=== PATIENT | male | born 1965 | race Two or more races ===

== ENCOUNTER 2025-06-14 08:08 | Inpatient (IN) | payer MEDICAID, SELFPAY ==
[2025-06-14] VITALS (16 sets, daily range): BP systolic 148–213; BP diastolic 81–118; PULSE 68–114; RESP 14–20; TEMP 36.6–36.9; O2SAT 98–100; BMI 25.7
--- NOTE | 2025-06-14 08:31 | XR_ITS ---
EXAMINATION: PA chest single view TECHNIQUE: Upright PA chest single view INDICATIONS: Right lower flank pain chest pain today. FINDINGS: Normal heart size Lungs are clear. Intact osseous structures IMPRESSION: No active disease
--- NOTE | 2025-06-14 08:31 | EKG_ITS ---
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
--- NOTE | 2025-06-14 08:32 | XR_ITS ---
Examination: CT brain head without contrast. 2-D sagittal coronal reconstructions Date and time of exam: June 14, 2025, 0846 hours INDICATIONS: Syncopal episode this morning, patient fell with injury to the head, head pain CTDI: vol (mGy): 53.5 DLP: (mGycm): 1143 Technique: Multiple CT axial sections of the brain have been obtained, 5 mm slice thickness. Contrast has not been administered. 2-D sagittal, coronal reconstructions have been obtained Low dose protocols were performed. One or more of the following dose reduction techniques were used; automated exposure control, adjustment of the mA and/or KV according to patient size, use of iterative reconstruction technique. Findings: No significant ventricular enlargement. Intra-axial or extra-axial hemorrhage density is not seen. No mass effect or midline shift Basal cisterns are not remarkable. Fourth ventricle is midline. Cranial vault intact. Impression: Negative for acute hemorrhage, mass effect or midline shift
--- NOTE | 2025-06-14 08:32 | EDRME_ITS ---
Rapid Medical Screening Exam [facility] Arrival date/time: 06/14/25 08:08 60-year-old male with a history of hypertension presents to the emergency room with a chief complaint of a syncopal episode that occurred at 2 AM this morning where he felt very weak and fell to the floor while using the restroom. Patient also states has been having some right sided flank pain. I have greeted and performed a focused initial assessment of this patient. A comprehensive ED assessment and evaluation of the patient, analysis of all test results, and completion of the medical decision making process will be conducted by additional ED providers. Chief Complaint: Fall Time Seen by Provider: 06/14/25 08:18 Vital signs: Vital Signs Temperature 97.8 F 06/14/25 08:23 Pulse Rate 75 06/14/25 08:23 Respiratory Rate 18 06/14/25 08:23 Blood Pressure 170/112 H 06/14/25 08:23 Pulse Oximetry (%) 100 06/14/25 08:23 Oxygen Delivery Method Room Air 06/14/25 08:23 Vital signs reviewed by provider: Yes Exam: GCS of 15 alert and oriented x 3 pupils are PERRLA Right sided CVA tenderness with palpation Clinical Impression: Orthostatic hypotension/anemia/hypoglycemia
--- NOTE | 2025-06-14 08:32 | XR_ITS ---
Examination: CT abdomen and pelvis without contrast. Coronal 3-D reconstructions. Sagittal 2-D reconstructions. Date and time of exam: June 14, 2025, 0854 hours INDICATIONS: Patient fell today with injury to the abdomen, right-sided flank pain CTDI: vol (mGy): 6.72 DLP: (mGycm): 404 Technique: Axial images of the abdomen have been obtained, 3 mm slice thickness Intravenous contrast material has not been administered. Low dose protocols were performed. One or more of the following dose reduction techniques were used; automated exposure control, adjustment of the mA and/or KV according to patient size, use of iterative reconstruction technique. Findings: No visualized liver splenic or renal laceration Tiny 1 to 2 mm bilateral renal calculi No gallstones No pancreatic or adrenal mass Aorta normal size and intact, no free blood in the abdomen Normal appendix No bowel obstruction Urinary bladder intact No significant prostatomegaly Prominent osteopenia IMPRESSION: Tiny 1 to 2 mm bilateral nonobstructing renal calculi Normal appendix No bowel obstruction diverticulitis or free air
[2025-06-14 09:33] LABS: Basophils # (Auto) 0.0 Thou/mm3 (0.0-0.2); Basophils % (Auto) 1 % (0-2.5); Eosinophils # (Auto) 0.1 Thou/mm3 (0.0-0.5); Eosinophils % (Auto) 1 % (0-10); Hematocrit 42.3 % (41.0-53.0); Hemoglobin 14.5 g/dL (13.5-16.0); Immature Granulocytes Auto 0.03 Thou/mm3 (0.00-0.00); Lymphocytes # (Auto) 1.7 Thou/mm3 (1.0-4.8); Lymphocytes % (Auto) 27 % (10-50); Mean Corpuscular HGB Conc 34.3 g/dl (31.0-37.0); Mean Corpuscular Hemoglobin 29.0 pg (25.0-35.0); Mean Corpuscular Volume 85 fL (80-100); Monocytes # (Auto) 0.6 Thou/mm3 (0.0-0.8); Monocytes % (Auto) 9 % (0-12); Neutrophils # (Auto) 4.0 Thou/mm3 (1.8-7.7); Neutrophils % (Auto) 63 % (37-80); Nucleated Red Blood Cell # 0.00 Thou/mm3 (0.00-0.00); Nucleated Red Blood Cell % 0 /100 WBC (0); Platelet Count 211 Thou/mm3 (140-440); RDW Standard Deviation 37.9 fL (35.1-43.9); Red Blood Count 5.00 Miln/mm3 (4.50-5.90); White Blood Count 6.4 Thou/mm3 (3.8-10.6)
[2025-06-14 09:48] LABS: INR 1.0 (0.9-1.3); Partial Thromboplastin Time 26.3 Seconds (22.0-36.0); Prothrombin Time 10.6 Seconds (9.0-12.2)
[2025-06-14 09:58] LABS: B-Type Natriuretic Peptide 32 pg/mL (0-100)
[2025-06-14 10:02] LABS: Alanine Aminotransferase 24 U/L (10-49); Albumin, Serum 4.7 gm/dL (3.4-4.8); Albumin/Globulin Ratio 2.0 (1.2-2.2); Alkaline Phosphatase 159 U/L (46-116); Anion Gap 8 (7-16); Aspartate Amino Transferase 25 U/L (0-34); BUN/Creatinine Ratio 13 Ratio (12-20); Bilirubin,Total 0.6 mg/dL (0.3-1.2); Blood Urea Nitrogen 12 mg/dL (9-23); Calcium 9.5 mg/dL (8.3-10.6); Calcium (Corrected) 9.5 mg/dL (8.5-10.1); Carbon Dioxide 30.5 mMol/L (20.0-31.0); Chloride 99 mMol/L (98-107); Creatinine (Component) 0.9 mg/dL (0.6-1.3); Estimated Creatinine Clearance 75.9 mL/min (>60); Free T4 (Free Thyroxine) 1.31 ng/dL (0.89-1.76); Globulin 2.3 gm/dL (2.3-3.5); Glucose 301 mg/dL (74-106); Lipase 35 U/L (12-53); Magnesium 1.8 mg/dL (1.6-2.6); Osmolality,Calculated 284 (275-295); Potassium 3.6 mMol/L (3.4-5.1); Sodium 137 mMol/L (136-145); Thyroid Stimulating Hormone 1.64 uIU/mL (0.55-4.78); Total Protein 7.0 gm/dL (5.7-8.2); Troponin I < 0.020 ng/mL (0.0-0.045); eGFR > 60 See Note
--- NOTE | 2025-06-14 10:10 | PC.NURSE ---
pt to ER from home stating he fell from his bed around 0230 this morning getting up to go to the restroom and is now stating he has right kidney pain. Denies pain when urinating. Pt GCS of 15. Denies nausea, vomiting, and no LOC.
--- NOTE | 2025-06-14 10:39 | PC.NURSE ---
provider at bedside
[2025-06-14] MEDS: KETOROLAC INJ 30 MG/ML VIAL IM (10:43)
--- NOTE | 2025-06-14 10:44 | EDNOTE_ITS ---
<Statement entered by Amber Driver MD - 06/16/25 17:44> I, Amber Driver MD, have reviewed the history, exam, and assessment of the patient. I have evaluated the patient independently and agree with the plan of care documented by [ ]. All diagnostic studies were reviewed and discussed. I confirm the diagnosis as documented by the Resident. I was present during the Medical Decision Making for this patient. The patient's plan of care was created between myself and the Resident and consistent with our discussion of the patient's case. ED General RME/HPI General Chief complaint: Fall Stated complaint: FALL, PAIN IN R) FLANK, WEAKNESS Time Seen by Provider: 06/14/25 08:18 Arrival date/time: 06/14/25 08:08 RME / HPI RME / HPI narrative: 06/14/25 08:08 60-year-old male with a history of hypertension presents to the emergency room with a chief complaint of a syncopal episode that occurred at 2 AM this morning where he felt very weak and fell to the floor while using the restroom. Patient also states has been having some right sided flank pain. I have greeted and performed a focused initial assessment of this patient. A comprehensive ED assessment and evaluation of the patient, analysis of all test results, and completion of the medical decision making process will be conducted by additional ED providers. Exam: GCS of 15 alert and oriented x 3 pupils are PERRLA Right sided CVA tenderness with palpation Impression: Orthostatic hypotension/anemia/hypoglycemia Related Data Allergies Allergy/AdvReac Type Severity Reaction Status Date / Time No Known Allergies Allergy Verified 06/14/25 08:17 ED Exam Narrative Physical exam: Physical Exam: GENERAL: [place], answering questions appropriately in Bahamian, appears stated ageke HEENT: NC/AT. Moist mucosa. PERRLA/EOMI. CARDIO: Heart RRR, no obvious murmurs, no JVD. PULM: No coughing or visible SOB. Lungs CTA B/L. GI: Abdomen soft, NT/ND, +BS. SKIN/MSK/EXT: No wounds/discoloration/rashes/edema/amputations noted. +Pedal pulses present B/L. NEURO: Oriented x3, Moves extremities x4, no focal neurologic deficits noted, Positive pronator drift on Left, rapid alternating movements intact, Gait appears waddling/scissoring in nature. 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 Care 06/14/25 14:30 Active Continuous Pulse Oximetry NOW Care 06/14/25 14:30 Completed Decision to Admit X1 Care 06/14/25 15:21 Active EKG (ED ONLY) *Do not use* NOW Care 06/14/25 08:31 Completed In and Out Catheter NEEDED Care 06/14/25 14:30 Active Insert IV NOW Care 06/14/25 14:30 Active NIH Stroke Scale now Care 06/14/25 14:30 Active NPO NOW Care 06/14/25 14:30 Active Nurse Swallow Screen x1 Care 06/14/25 14:30 Active Consult to Neurology / Tele-Neurology Routine Cons 06/14/25 14:[address] abdomen pelvis wo con Stat Exams 06/14/25 08:[address] angio stroke protocol Stat Exams 06/14/25 14:[address] head/brain wo con Stat Exams 06/14/25 08:[address] stroke protocol Stat Exams 06/14/25 14:29 Completed EKG (ED Only) Stat Exams 06/14/25 08:31 Draft XR chest 1V portable Stat Exams 06/14/25 08:31 Completed Alcohol, Blood Medical Stat Lab 06/14/25 09:24 Completed B-Type Natriuretic Peptide Stat Lab 06/14/25 09:24 Completed CBC Stat Lab 06/14/25 09:24 Completed Comprehensive Metabolic Panel Stat Lab 06/14/25 09:24 Completed Drug Screen,Urine Stat Lab 06/14/25 11:25 Completed Free T4 (Free Thyroxine) Stat Lab 06/14/25 09:24 Completed Lipase Stat Lab 06/14/25 09:24 Completed Magnesium Stat Lab 06/14/25 09:24 Completed Partial Thromboplastin Time Stat Lab 06/14/25 09:24 Completed Prothrombin Time with INR Stat Lab 06/14/25 09:24 Completed TSH [Thyroid Stimulating Hormone] Stat Lab 06/14/25 09:24 Completed Troponin I Stat Lab 06/14/25 09:24 Completed Urinalysis, C/S if Indicated Stat Lab 06/14/25 11:25 Completed Clopidogrel [Plavix] Med 06/14/25 15:09 Discontinued 300 mg PO X1 ONE Ketorolac Inj [Toradol Inj] Med 06/14/25 10:30 Discontinued 30 mg IM X1 ONE NIFEdipine [Procardia Xl] Med 06/14/25 12:55 Discontinued 30 mg PO X1 ONE hydrALAZINE HCL [Apresoline] Med 06/14/25 14:03 Discontinued 10 mg PO X1 ONE Oxygen Delivery NOW RT 06/14/25 14:30 Active Vital Signs Vital signs: Vital Signs Temperature 97.8 F 06/14/25 08:23 Pulse Rate 75 06/14/25 08:23 Respiratory Rate 18 06/14/25 08:23 Blood Pressure 170/112 H 06/14/25 08:23 Pulse Oximetry (%) 100 06/14/25 08:23 Oxygen Delivery Method Room Air 06/14/25 08:23 Discharge Plan Plan Patient Disposition: HOME (Self Care) Patient condition on transfer: Stable Prescriptions/Referrals Referrals: No Primary/Family,Physician [Primary Care Provider] - In 1 week Problem List Clinical Impression: Renal colic Patient/Caregiver Discharge Instructions Education Materials: ED Kidney Stone w/ Colic Additional Instructions: Por favor, consulte con monteiro m?dico de cabecera en los pr?ximos 3 a 5 d?as. Pida a monteiro m?dico de cabecera que le controle la presi?n arterial y que le derive a un neur?logo debido a la marcha anormal y a la desviaci?n pronadora positiva en el lado peng. P?ronal a monterio m?dico que le realice un examen f?sico y robert evaluaci?n anual, ya que parth niveles de glucosa son bastante altos; podr?a tener diabetes tipo 2. Si el dolor empeora o si presenta fiebre/escalofr?os, dolor en el pecho, dificultad para respirar o p?rdida del conocimiento, regrese a la stephon de emergencias de inmediato. Print Language: Bahamian Stand Alone Forms: Criss Award Info., Patient Portal Info Letter MDM Narrative MDM hospital course (for use when minimal MDM required): HPI: 60-year-old male with past medical history of type 2 diabetes presenting to the ER on 06/14 after he apparently had an episode where he was walking to his bath room around 2 AM when he felt weak and fell. Patient denies losing consciousness and denies having his head anywhere. He does state that he has been having ongoing right sided pain around his kidney. Of note, patient states that in the past he has had similar symptoms and was treated with antibiotics due to kidney infection. Patient otherwise denies having any chest pain, shortness of breath, dizziness, palpitations, nausea, vomiting, diarrhea, melena, hematochezia or hematemesis. On examination, please refer to the physical exam of; patient presented mildly hypertensive 170/112, heart rate of 75, respiratory rate 18, afebrile satting 100 on room air. Pertinent findings included unremarkable CBC without leukocytosis or anemia. CMP also largely unremarkable other than glucose elevated at 301 and alk phos of 159 otherwise troponin and BNP negative. Urinalysis shows glucosuria but otherwise unremarkable for any signs of trauma, hematuria or infection. Chest x-ray showed no active disease, CT abdomen pelvis showed 2 tiny 1 to 2 mm bilateral nonobstructing renal calculi otherwise unremarkable, head CT was negative and EKG showed sinus rhythm. #New neurological findings L sided pronator drift; abnormal gait with waddling/scisscoring noted Patient states these symptoms started recently, denies having difficulty walking prior to initial presentation ASCVD risk of 24.9% (coronary or stroke or non-fatal [place] or stroke) in next 10 years Gave patient bolus of Plavix 300mg x 1 Plan: Stroke alert initiated; CT and CTA stroke protocol negative Tele neurology recommendations to admit patient and obtain MRI #Presyncope #Hypertensive urgency Patient's EKG is unremarkable Head CT also unremarkable Patient denies any chest pain, shortness of breath, palpitations or any other concerning cardiac symptoms at this time. Also gave patient nifedipine 30 mg for blood pressure control and hydralazine 10 mg x 1 #Renal colic Patient has history of nephrolithiasis in the past As noted CT abdomen pelvis shows nonobstructing renal calculi Patient given Toradol 30 mg IM with improvement in pain Patient seen and assessed with attending Dr. Villa Guevara, DO PGY-2 Internal Medicine - GME Medication Administration(s) Medication Administration History Discontinued Medications Clopidogrel Bisulfate (Clopidogrel Bisulfate 75 Mg Tablet) 300 mg PO X1 ONE Stop: 06/14/25 15:10 Last Admin: 06/14/25 15:17 Dose: 300 mg Documented By: DO Hydralazine HCl (Hydralazine Hcl 10 Mg Tablet) 10 mg PO X1 ONE Stop: 06/14/25 14:04 Last Admin: 06/14/25 15:17 Dose: 10 mg Documented By: DO Ketorolac Tromethamine (Ketorolac Inj 30 Mg/Ml Vial) 30 mg IM X1 ONE Stop: 06/14/25 10:31 Last Admin: 06/14/25 10:43 Dose: 30 mg Documented By: DO Nifedipine (Nifedipine Xl 30 Mg Tabcr) 30 mg PO X1 ONE Stop: 06/14/25 12:56 Last Admin: 06/14/25 13:31 Dose: 30 mg Documented By: DO
[2025-06-14 11:35] LABS: Collection Type, Urine Clean Catch; RBC,Urine 0 /hpf (0-3); Squamous Epithelial Cell,Urine 0 /hpf (0-5); WBC,Urine 0 /hpf (0-5)
[2025-06-14 12:07] LABS: Bilirubin,Urine Negative (Negative); Blood,Urine Negative (Negative); Clarity,Urine Clear (Clear/Hazy); Color,Urine Colorless (Lt Yel-Yel); Culture Indicated,Urine Not Indicated; Glucose, Urine 4+ (Negative); Ketones,Urine Negative (Negative); Leukocyte Esterase,Urine Negative (Negative); Nitrite,Urine Negative (Negative); PH,Urine 7.0 (5.0-7.0); Protein,Urine Trace (Neg - Trace); Specific Gravity,Urine 1.010 (1.001-1.035); Urobilinogen,Urine Negative mg/dL (0.0-1.0)
--- NOTE | 2025-06-14 12:53 | PC.NURSE ---
Dr. Guevara made aware of pt's high BP. Pt states he doesn't take any blood pressure medications. Per provider will give pt a dose of medication for high BP prior to discharge
[2025-06-14] MEDS: NIFEdipine XL 30 MG TABCR PO (13:31)
--- NOTE | 2025-06-14 14:21 | PC.NURSE ---
tele neuro cart activated conf number [id number]
--- NOTE | 2025-06-14 14:29 | XR_ITS ---
Examination: CTA carotids with intravenous contrast CTA brain, head with intravenous contrast. 2-D sagittal, coronal reconstructions. 3-D reconstructions. Exam date and time: June 12, 2025, 1437 hours INDICATIONS: Stroke alert, onset unsteady gait today CTDI: vol (mGy) 25.4 DLP: (mGycm) 491 Technique: Multiple CTA axial brain, head carotid images post intravenous contrast injection 75 cc, [id number]. 2-D sagittal, coronal reconstructions. 3-D reconstructions, 3-D post processing including vascular maximum intensity projection images. Low dose protocols were performed. One or more of the following dose reduction techniques were used; automated exposure control, adjustment of the mA and/or KV according to patient size, use of iterative reconstruction technique. Findings: No significant common carotid carotid bifurcation or internal carotid artery stenoses Codominant vertebral arteries with no critical stenoses in the neck No cerebral large vessel arterial occlusions or thrombus IMPRESSION: No significant neck arterial stenoses No cerebral large vessel arterial occlusions or thrombus
--- NOTE | 2025-06-14 14:29 | XR_ITS ---
Examination: CT brain head without contrast. 2-D sagittal coronal reconstructions Date and time of exam: June 14, 2025, 1435 hours, comparison June 14, 2025 0853 hours INDICATIONS: Stroke alert, unsteady gait today CTDI: vol (mGy): 56.6 DLP: (mGycm): 1169 Technique: Multiple CT axial sections of the brain have been obtained, 5 mm slice thickness. Contrast has not been administered. 2-D sagittal, coronal reconstructions have been obtained Low dose protocols were performed. One or more of the following dose reduction techniques were used; automated exposure control, adjustment of the mA and/or KV according to patient size, use of iterative reconstruction technique. Findings: No significant ventricular enlargement. Intra-axial or extra-axial hemorrhage density is not seen. No mass effect or midline shift Basal cisterns are not remarkable. Fourth ventricle is midline. Cranial vault intact. Impression: Negative for acute hemorrhage, mass effect or midline shift
[2025-06-14 14:30] LABS: Amphetamine/Methamp Scrn,U Negative (Negative); Barbiturate Screen,Urine Negative (Negative); Benzodiazepines Screen,Urine Negative (Negative); Benzoylecgonine Screen, Ur Negative (Negative); Fentanyl Screen,Urine Negative (Negative); Opiate Screen,Urine Negative (Negative); THC Screen,Urine Negative (Negative)
--- NOTE | 2025-06-14 14:30 | PC.NURSE ---
Stroke alert called on pt at 1420. Assisted DEE Onofre as her preceptor was on lunch. Took pt to CT while on groundwater monitoring technician. Tele neurologist evaluated pt, viewed CT and CTA and stated pt is NOT a candidate for TNK at this time. Pt was returned to ER room 5.
[2025-06-14 14:52] LABS: Alcohol, Blood Medical < 3.0 mg/dL (0-10.0)
--- NOTE | 2025-06-14 15:03 | PD.TNEURO ---
Tele Neuro Consultation Consultation Date 06/14/25 Most Recent Vital Signs Last Vital Signs Temp 98.4 F 06/14/25 12:30 Pulse 74 06/14/25 13:31 Resp 16 06/14/25 12:28 BP 184/86 H 06/14/25 13:31 Pulse Ox 99 06/14/25 12:28 O2 Del Method Room Air 06/14/25 08:23 Laboratory-Coagulation Panel PT 10.6 Seconds (9.0-12.2) 06/14/25 09:24 INR 1.0 (0.9-1.3) 06/14/25 09:24 APTT 26.3 Seconds (22.0-36.0) 06/14/25 09:24 Consultation Narrative [facility] Tele[facility]urology Consult Services Patient Name:???greensallyhernandezjanak Date of :???1965 Identification Number:??? Date of Service:???06/14/2025 14:21:29 Diagnosis:?I63.89 - Cerebrovascular accident (CVA) due to other mechanism ([facility]) Impression: ?60 year old male with episode of syncope today and some weakness in the left upper extremity since yesterday. NIHSS 1. CT head negative for hemorrhage. Not a candidate for thrombolysis given LKW > 4.5 hours. CTA performed however imaging not in PACS and will need to be followed up. Given left sided weakness I do suspect the patient had a stroke. I would recommend MRI brain and an evaluation for modifiable stroke risk factors. Given the likely stroke I would recommend initiating DAPT at this time. Our recommendations are outlined below. Recommendations: ? Stroke/Telemetry Floor ? Neuro Checks (Q4) ? Bedside Swallow Eval ? DVT Prophylaxis ? IV Fluids, Normal Saline ? Head of Bed 30 Degrees ? Euglycemia and Avoid Hyperthermia (PRN Acetaminophen) ? Bolus with Clopidogrel 300 mg bolus x1 and initiate dual antiplatelet therapy with Aspirin 81 mg daily and Clopidogrel 75 mg daily ? Antihypertensives PRN if Blood pressure is greater than 220/120 or there is a concern for End organ damage/contraindications for permissive HTN. If blood pressure is greater than 220/120 give labetalol PO or IV or Vasotec IV with a goal of 15% reduction in BP during the first 24 hours. ?MRI Brain Sign Out: ? Discussed with Emergency Department Provider Advanced Imaging:Advanced imaging has been ordered. Results pending. Metrics: Last Known Well: Unknown Arrival Time: 06/14/2025 08:12:00 Activation Time: 06/14/2025 14:21:29 Initial Response Time: 06/14/2025 14:24:48Symptoms: left sided weakness. Initial patient interaction: 06/14/2025 14:33:04 NIHSS Assessment Completed: 06/14/2025 14:36:55Patient is not a candidate for Thrombolytic. Thrombolytic Medical Decision: 06/14/2025 14:36:57Patient was not deemed candidate for Thrombolytic because of following reasons: LKW outside 4.[address] Head: I personally reviewed all the CT images that were available to me and it showed: no evidence of hemorrhage. Primary Provider Notified of Diagnostic Impression and Management Plan on: 06/14/2025 15:02:27 History of Present Illness:Patient is a 60 year old Male. Patient was brought by private transportation with symptoms of left sided weakness. The patient presented following a fall. He was normal upon arrival but has been acting different and diffusely weak. When the patient woke up at 2am he fell out of bed. He notes that when he stands up he will get very dizzy. He has noted that the left arm and hand is having difficulty holding onto things. The left sided weakness began sometime yesterday. He notes that the right side of his body is numb because of diabetic neuropathy which he has had for 8 years. ? Past Medical History: ?Hypertension ?Diabetes Mellitus Medications: No Anticoagulant use? No Antiplatelet use Reviewed EMR for current medications Allergies:? NKDA Social History: Drug Use: No Family History: There is no family history of premature cerebrovascular disease pertinent to this consultation ROS : 14 Points Review of Systems was performed and was negative except mentioned in HPI. Past Surgical History: There Is No Surgical History Contributory To Today?s Visit ? Examination: BP(207/106),?Pulse(90),?Blood Glucose(265) 1A: Level of Consciousness - Alert; keenly responsive?+ 0 1B: Ask Month and Age - Both Questions Right?+ 0 1C: Blink Eyes & Squeeze Hands - Performs Both Tasks?+ 0 2: Test Horizontal Extraocular Movements - Normal?+ 0 3: Test Visual Suarez - No Visual Loss?+ 0 4: Test Facial Palsy (Use Grimace if Obtunded) - Normal symmetry?+ 0 5A: Test Left Arm Motor Drift - Drift, but doesn't hit bed?+ 1 5B: Test Right Arm Motor Drift - No Drift for 10 Seconds?+ 0 6A: Test Left Leg Motor Drift - No Drift for 5 Seconds?+ 0 6B: Test Right Leg Motor Drift - No Drift for 5 Seconds?+ 0 7: Test Limb Ataxia (FNF/Heel-Ward) - No Ataxia?+ 0 8: Test Sensation - Normal; No sensory loss?+ 0 9: Test Language/Aphasia - Normal; No aphasia?+ 0 10: Test Dysarthria - Normal?+ 0 11: Test Extinction/Inattention - No abnormality?+ 0 NIHSS Score:?1 Pre-Morbid Modified Apollo Scale: 0 Points = No symptoms at all Spoke with :?Dr. Guevara, ED physician This consult was conducted in real time using interactive audio and video technology. Patient was informed of the technology being used for this visit and agreed to proceed. Patient located in hospital and provider located at home/office setting. Patient is being evaluated for possible acute neurologic impairment and high probability of imminent or life-threatening deterioration. I spent total of 50 minutes providing care to this patient, including time for face to face visit via telemedicine, review of medical records, imaging studies and discussion of findings with providers, the patient and/or family. Dr Asia Sutherland [facility] For Inpatient follow-up with [facility] physician please call [facility] at . As we are not an outpatient service for any post hospital discharge needs please contact the hospital for assistance. If you have any questions for the [facility] physicians or need to reconsult for clinical or diagnostic changes please contact us via [facility] at . Non-radiologist review of imaging performed to assist with emergent clinical decision-making. Remote physician workstations do not possess the same resolution, calibration, or diagnostic capabilities as hospital-based radiology reading stations, and formal radiologist read is necessary. Signature :?Asia Sutherland ?
[2025-06-14] MEDS: CLOPIDOGREL BISULFATE 75 MG TABLET 300 MG PO (15:17)
--- NOTE | 2025-06-14 16:11 | ESHP_ITS ---
<Statement entered by Lj Fermin MD - 06/14/25 21:17> Note reviewed and agree with care plan as documented. Please refer to the note below for further details. Plan discussed with attending physician Dr. Obed Fermin MD PGY-2 Internal Medicine Documentation for date of: 06/14/25 HPI History of Present Illness History of present illness: Mr. Anil Zelaya is a 60 year old male with a past medical history significant for type 2 diabetes mellitus, hyperlipidemia, neuropathy coming in s/p fall. Patient is a poor historian. Per patient, in the middle of the night earlier today patient was going to the restroom but suffered a fall. He said the fall was approximately at 0200. He reports that he felt like his left leg 'gave in' but initially thought nothing of it. Then later in the morning he started getting a headache to which he went to the emergency department. Initial visit in ED AM at [facility] patient denoted ongoing headache as well as flank pain. He has not had hematuria. He also stated that he had left-sided weakness, and a stroke workup was initiated. EKG NSR on admission CTAP reveals tiny 1-2mm bilateral nonobstructing renal calculi, without bowel obstruction diverticulitis nor free air. Patient admitted for stroke workup: Neurological examination bedside is significant for drifting left foot on ambulation despite the ability to ambulate somewhat independently. Additionally Mr. Zelaya has decreased calibration tester strength on L side upper extremity - 4+ on RUE squeeze, 3+ on LUE squeeze. No visual field defects are noted on exams. Reflexes are in tact WNL. Othwerwise strength on flexion, extension +4 throughout(save for LUE). Additionally, mild left-sided facial droop is notable on examination without word-slurring during conversation. CT head negative for hemorrhage. CTA Head/Neck demonstrated no significant stenosis, no cerebral large vessel arterial occlusions or thrombi. Neurology consulted: not a candidate for thrombolysis given >4.5 hours from event. 300 loading dose of Plavix given, ASA 81 and Plavix 75 q24h ordered for tomorrow Permissive HTN protocol initiated 220/120 as well w/ labetalol PO/IV or Vasotec IV for PRN HTN tx. Review of Systems Review of Systems Systems Reviewed: All systems reviewed, normal except as documented Exam Vital Signs Temp Pulse Resp BP Pulse Ox O2 Del Method 97.9 F 79 14 213/118 H 99 Room Air 06/14/25 15:28 06/14/25 15:33 06/14/25 15:33 06/14/25 15:33 06/14/25 15:33 06/14/25 15:33 Narrative Exam General: alert and oriented to self/place/year, no acute distress, able to speak full sentences HEENT: NC/AT, mucous membranes moist, bilateral sclera anicteric Neuro: significant for Pronator drift of LUE, Ambulation difficulty w/ LLE despite normal strength/reflex test. L lower face droop on confrontation. Other Neuro exam WNL Cardiovascular: regular rate and rhythm, S1/S2 present, no murmurs appreciated Pulmonary: clear to auscultation bilaterally, no rales/rhonchi/wheezes Abdominal: soft, nontender, present bowel sounds Musculoskeletal: no peripheral edema Skin: Warm, well-perfused Results: Labs 06/17/25 04:43 06/17/25 04:43 Labs: Short CBC 06/14/25 Range/Units 09:24 WBC 6.4 (3.8-10.6) Thou/mm3 Hgb 14.5 (13.5-16.0) g/dL Hct 42.3 (41.0-53.0) % Plt Count 211 (140-440) Thou/mm3 [facility] 06/14/25 09:24 Sodium 137 Potassium 3.6 Chloride 99 Carbon Dioxide 30.5 BUN 12 Creatinine 0.9 Glucose 301 H Calcium 9.5 Cardiac Enzymes 06/14/25 Range/Units 09:24 Troponin I < 0.020 (0.0-0.045) ng/mL Liver Function 06/14/25 Range/Units 09:24 Total Bilirubin 0.6 (0.3-1.2) mg/dL AST 25 (0-34) U/L ALT 24 (10-49) U/L Alkaline Phosphatase 159 H (46-116) U/L Albumin 4.7 (3.4-4.8) gm/dL Urine 06/14/25 Range/Units 11:25 Urine Color Colorless A (Lt Yel-Yel) Urine Clarity Clear (Clear/Hazy) Urine pH 7.0 (5.0-7.0) Ur Specific [place] 1.010 (1.001-1.035) Urine Protein Trace (Neg - Trace) Urine Glucose (UA) 4+ A (Negative) Quality Measures Quality Measures none Medications Home Medications and Allergies Home Medications ?Medication ?Instructions ?Recorded ?Confirmed ?Type clonazepam 2 mg tablet (Klonopin) 2 mg PO QDAY 5 06/14/25 History metformin 850 mg PO DAILY diabetes 06/14/25 History naproxen sodium 220 mg tablet 220 mg PO BID PRN pain 1 08/15/24 06/14/25 History (Flanax (naproxen)) pravastatin 10 mg tablet 10 mg PO QDAY 06/14/2506/14 History pregabalin 75 mg capsule (Lyrica) 75 mg PO QDAY 06/14/25 History Allergies Allergy/AdvReac Type Severity Reaction Status Date / Time No Known Allergies Allergy Verified 06/14/25 08:17 Visit Medications Discontinued Medications Clopidogrel Bisulfate (Clopidogrel Bisulfate 75 Mg Tablet) 300 mg PO X1 ONE Stop: 06/14/25 15:10 Last Admin: 06/14/25 15:17 Dose: 300 mg Hydralazine HCl (Hydralazine Hcl 10 Mg Tablet) 10 mg PO X1 ONE Stop: 06/14/25 14:04 Last Admin: 06/14/25 15:17 Dose: 10 mg Ketorolac Tromethamine (Ketorolac Inj 30 Mg/Ml Vial) 30 mg IM X1 ONE Stop: 06/14/25 10:31 Last Admin: 06/14/25 10:43 Dose: 30 mg Nifedipine (Nifedipine Xl 30 Mg Tabcr) 30 mg PO X1 ONE Stop: 06/14/25 12:56 Last Admin: 06/14/25 13:31 Dose: 30 mg Assessment & Plan Plan 60 year old male with a past medical history significant for type 2 diabetes mellitus, hyperlipidemia, neuropathy who is being admitted for stroke work up. #CVA work-up #Facial Droop Fall @ 0200 06/13 Neurological exam noted for L sided face droop, LLE weakness and LUE pronation No dysarthria/dysphagia 06/14 AM consulted Neurology Head CT negative for hemorrhage 06/14 EKG sinus rhythm Differential = Stroke >>> TIA >> other Neuro Recommendations: ? Stroke/Telemetry Floor ? Neuro Checks (Q4) ? Bedside Swallow Eval ? DVT Prophylaxis ? IV Fluids, Normal Saline ? Head of Bed 30 Degrees ? Euglycemia and Avoid Hyperthermia (PRN Acetaminophen) ? Bolus with Clopidogrel 300 mg bolus x1 and initiate dual antiplatelet therapy with Aspirin 81 mg daily and Clopidogrel 75 mg daily ? Antihypertensives PRN if Blood pressure is greater than 220/120 or there is a concern for End organ damage/contraindications for permissive HTN. If blood pressure is greater than 220/120 give labetalol PO or IV or Vasotec IV with a goal of 15% reduction in BP during the first 24 hours. -Pending MRI -Gave 300mg plavix today, ASA 81 and Plavix 75 q24h tomorrow 06/15 -Admit to med telemetry for continued stroke workup -Follow up swallow eval, Speech Therapy -Permissive HTN with PRN labetalol -Daily CBC CMP Mg Phos -Pending ECHO w/ bubble study -Follow-up A1c, lipid panel #Type 2 diabetes mellitus Takes metformin 850 mg daily at home -ISS -Hypoglycemic protocol in place -Follow up daily labs -Follow-up A1c #HLD at home on Pravastatin 10mg q24h -Started on Atorvastatin 40mg PO HS #Neuropathy -Resume home pregabalin 75mg q24h Hospital management: Disposition: admit to med tele for stroke workup Fluids: LR 75ml/hr Diet: NPO Lines: PIV DVT prophylaxis: Enoxaparin 40mg q24h CODE STATUS: full code Attending seen and discussed with attending physician Dr. Miguel Clay and senior resident Dr. Lj Herrera MD PGY-1 Attending Provider Attestation/Addendum I have examined the patient, reviewed labs and imaging findings, discussed the case with the resident(s), and reviewed entered orders. I agree with the plan of care as outlined in this note, with these additional summaries/recommendations: After examination of the patient and review of the clinical data, I feel that this patient needs admission to the hospital for further treatment and evaluation. Dr. Obed MD
--- NOTE | 2025-06-14 16:40 | PC.NURSE ---
Neuro at bedside
--- NOTE | 2025-06-14 17:04 | PC.NURSE ---
Neuro at bedside at this time. Will give pt Hydralazine once neuro is done
[2025-06-14] MEDS: hydrALAZINE INJ 20 MG/ML VIAL 10 MG IVP (17:10)
--- NOTE | 2025-06-14 17:22 | ECHO_ITS ---
Patient Info Name: Anil Grewal Age: 60 years : 1965 Gender: Male Ht: 165 cm Wt: 70 kg BSA: 1.81 m2 BP: 187 / 97 mmHg HR: 78 bpm Exam Date: 06/14/2025 5:38 PM Admit Date: 06/14/2025 Site: [facility] Room Number: [facility]5 Patient Status: I Exam Type: CA echo doppler complete [employer] Guide: Cassia Roth Ordering Physician: Lj Fermin Study Info Indications Stroke rule out, with bubble study - Primary Location: [place] Left Ventricular Outflow Tract Name Value Normal LVOT 2D LVOT Diameter 1.9 cm LVOT Doppler LVOT Peak Velocity 137 cm/s LVOT Mean Gradient 4 mmHg LVOT VTI 28 cm LVOT VTI/AV VTI Ratio 1.0 LVOT Stroke Volume 79 ml Pulmonic Valve Name Value Normal PV Doppler PV Peak Velocity 141 cm/s Mitral Valve Name Value Normal MV Doppler MV Decel [place] 458 cm/s2 MV PHT 53 ms MV Area (PHT) 4.1 cm2 4.0-5.0 MV Diastolic Function MV E Peak Velocity 84 cm/s MV A Peak Velocity 104 cm/s MV E/A 0.8 MV Annular TDI MV Septal e' Velocity 7.4 cm/s MV E/e' (Septal) 11.3 MV Lateral e' Velocity 9.6 cm/s MV E/e' (Lateral) 8.8 MV e' Average 8.49 cm/s MV E/e' (Average) 10.1 Tricuspid Valve Name Value Normal TV Regurgitation Doppler TR Peak Velocity 195 cm/s Estimated PAP/RSVP RA Pressure 3 mmHg <=5 PA Systolic Pressure 18 mmHg <36 RV Systolic Pressure 18 mmHg <36 Aortic Valve Name Value Normal AV 2D/MM AV Cusp Sep (MM) 1.0 cm AV Doppler AV Peak Velocity 189 cm/s AV Mean Gradient 7 mmHg AV VTI 28 cm AV Area (Cont Eq VTI) 2.8 cm2 >=3.0 AV Area (Cont Eq Adrian) 2.1 cm2 AV DI (Adrian) 0.72 AV Regurgitation 2D LVOT Area 2.8 cm2 Ventricles Name Value Normal LV Dimensions 2D/MM IVS Diastolic Thickness (2D) 1.0 cm 0.6-1.0 LVID Diastole (2D) 3.8 cm 4.2-5.8 LVIW Diastolic Thickness (2D) 1.3 cm 0.6-1.0 LVID Systole (2D) 2.4 cm 2.5-4.0 LVOT Diameter 1.9 cm LV Mass (2D Cubed) 143.79 g 88.00-224.00 LV Mass Index (2D Cubed) 79 g/m2 49-115 Relative Wall Thickness (2D) 0.68 <=0.42 IVS/LVIW Diastolic Thickness (2D) 0.77 0.00-1.50 LV Fractional Shortening/Ejection Fraction 2D/MM LV Fractional Shortening (2D) 37 % 25-43 LV EF (2D Teichholz) 67 % Atria Name Value Normal LA Dimensions LA Volume (4C A-L) 61 ml LA Volume (BP A-L) 48 ml Left Ventricle Left ventricular chamber dimension is normal. Left ventricular systolic function is normal with visually estimated ejection fraction of 60-65%. There is normal geometry noted in the left ventricle. Left ventricular segmental wall motion is normal. There is grade I diastolic dysfunction in the left ventricle. Right Ventricle Right ventricular chamber dimension is normal. Right ventricular systolic function is normal. Left Atrium Left atrial chamber dimension is normal. Right Atrium Right atrial chamber dimension is normal. Aortic Valve The aortic valve is trileaflet. There is no aortic valve sclerosis. There is no aortic valve stenosis. There is no aortic valve regurgitation. Pulmonic Valve The pulmonic valve is normal. There is no pulmonic valve stenosis. There is no pulmonic regurgitation. Mitral Valve The mitral valve has normal leaflets. There is no mitral valve stenosis. There is trace mitral valve regurgitation. Tricuspid Valve The tricuspid valve leaflets are normal. There is no tricuspid valve stenosis. There is trace tricuspid valve regurgitation. Unable to estimate pulmonary artery systolic pressure due to inadequate tricuspid regurgitant envelope. Pericardium/Pleural The pericardium appears normal. There is no pericardial effusion. No pleural effusion visualized. Inferior Vena Cava Normal inferior vena cava with >50% collapse upon inspiration consistent with normal right atrial pressure, 3 mmHg. Aorta The aortic measurements are indexed to age and body surface area. The aortic root at the sinus of Valsalva is not well visualized. The prox ascending aorta is not well visualized. Summary 1. Left ventricle size is normal and systolic function is normal. Estimated ejection fraction is 60-65%. There is grade I diastolic dysfunction. 2. Right ventricle chamber size is normal and systolic function is normal. Estimated RVSP is 18 mmHg. 3. There is trace mitral and tricuspid valve regurgitation. 4. Normal IVC with estimated RA pressure 3 mmHg. 5. Negative bubble study, no evidence of PFO. Report Signatures Finalized by Pipe Granado on 06/16/2025 04:03 PM
--- NOTE | 2025-06-14 17:22 | PD.RESHP ---
Documentation for date of: 06/14/25 [facility] History of Present Illness History of present illness: Mr. Anil Zelaya is a 60 year old male with a past medical history significant for Diabetes, hyperlipidemia, neuropathy coming in s/p fall. Patient is a poor historian. Per patient, in the middle of the night earlier today patient was going to the restroom but suffered a fall. He said the fall was approximately at 0200. He reports that he felt like his left leg 'gave in' but initially thought nothing of it. Then later in the morning he started getting a headache to which he went to the emergency department. Initial visit in ED AM at [facility] patient denoted ongoing headache as well as flank pain. Exam Vital Signs Temp Pulse Resp BP Pulse Ox O2 Del Method 98.1 F 78 15 187/97 H 98 Room Air 06/14/25 16:39 06/14/25 17:10 06/14/25 17:08 06/14/25 17:10 06/14/25 17:08 06/14/25 15:33 Results: Labs 06/14/25 09:24 06/14/25 09:24 Labs: Short CBC 06/14/25 Range/Units 09:24 WBC 6.4 (3.8-10.6) Thou/mm3 Hgb 14.5 (13.5-16.0) g/dL Hct 42.3 (41.0-53.0) % Plt Count 211 (140-440) Thou/mm3 BMP 06/14/25 09:24 Sodium 137 Potassium 3.6 Chloride 99 Carbon Dioxide 30.5 BUN 12 Creatinine 0.9 Glucose 301 H Calcium 9.5 Cardiac Enzymes 06/14/25 Range/Units 09:24 Troponin I < 0.020 (0.0-0.045) ng/mL Liver Function 06/14/25 Range/Units 09:24 Total Bilirubin 0.6 (0.3-1.2) mg/dL AST 25 (0-34) U/L ALT 24 (10-49) U/L Alkaline Phosphatase 159 H (46-116) U/L Albumin 4.7 (3.4-4.8) gm/dL Urine 06/14/25 Range/Units 11:25 Urine Color Colorless A (Lt Yel-Yel) Urine Clarity Clear (Clear/Hazy) Urine pH 7.0 (5.0-7.0) Ur Specific [place] 1.010 (1.001-1.035) Urine Protein Trace (Neg - Trace) Urine Glucose (UA) 4+ A (Negative) Quality Measures Quality Measures none Medications Home Medications and Allergies Allergies Allergy/AdvReac Type Severity Reaction Status Date / Time No Known Allergies Allergy Verified 06/14/25 08:17 Visit Medications Aspirin (Aspirin Ec 81 Mg Tabec) 81 mg PO DAILY JAYE Stop: 07/15/25 08:59 Clopidogrel Bisulfate (Clopidogrel Bisulfate 75 Mg Tablet) 75 mg PO DAILY JAYE Stop: 07/15/25 08:59 Discontinued Medications Clopidogrel Bisulfate (Clopidogrel Bisulfate 75 Mg Tablet) 300 mg PO X1 ONE Stop: 06/14/25 15:10 Last Admin: 06/14/25 15:17 Dose: 300 mg Hydralazine HCl (Hydralazine Hcl 10 Mg Tablet) 10 mg PO X1 ONE Stop: 06/14/25 14:04 Last Admin: 06/14/25 15:17 Dose: 10 mg Hydralazine HCl (Hydralazine Inj 20 Mg/Ml Vial) 10 mg IVP X1 ONE Stop: 06/14/25 16:39 Last Admin: 06/14/25 17:10 Dose: 10 mg Ketorolac Tromethamine (Ketorolac Inj 30 Mg/Ml Vial) 30 mg IM X1 ONE Stop: 06/14/25 10:31 Last Admin: 06/14/25 10:43 Dose: 30 mg Nifedipine (Nifedipine Xl 30 Mg Tabcr) 30 mg PO X1 ONE Stop: 06/14/25 12:56 Last Admin: 06/14/25 13:31 Dose: 30 mg
[2025-06-14] MEDS: RINGERS LACTATED 1000 ML 1,000 ML 75 ML IV (18:10)
[2025-06-15] VITALS (9 sets, daily range): BP systolic 142–178; BP diastolic 67–101; PULSE 16–101; RESP 15–98; TEMP 36.2–37.1; O2SAT 95–98; BMI 25.0; BMI 12.0
--- NOTE | 2025-06-15 | XR_ITS ---
Examinations: MRI Brain without intravenous contrast. MRA brain without intravenous contrast. MRA carotids without intravenous contrast 3-D vascular reconstructions Date and time of exam: June 15 2025, 0858 hours INDICATIONS: Stroke alert June 14, 2025, onset unsteady gait Technique: Multiple axial and sagittal images of the brain have been obtained MRA brain carotid images without contrast obtained, including 3-D postprocessing, vascular maximum intensity projection images Findings: Sell[place] is not enlarged. The optic chiasm and infundibular stalk are not remarkable. Prepontine and interpeduncular cisterns are not enlarged. No localized enlargement of the medulla or dagmar. Fourth ventricle and cerebellar tonsils normal in position. Subacute hemorrhage is not seen. Fourth ventricle is midline. Mass in the cerebellopontine angle region is not evident. 7th and 8th nerve complexes exhibits symmetry. Globes are symmetrical with no retro-orbital mass. Increased white matter signal prominent Diffusion-weighted images demonstrate multiple foci restricted diffusion right parietal lobe Mass-effect upon the ventricular system is not identified. MRA brain images no large vessel occlusions Impression: Multiple acute infarcts right parietal lobe
[2025-06-15 05:45] LABS: Basophils # (Auto) 0.0 Thou/mm3 (0.0-0.2); Basophils % (Auto) 0 % (0-2.5); Eosinophils # (Auto) 0.1 Thou/mm3 (0.0-0.5); Eosinophils % (Auto) 1 % (0-10); Hematocrit 40.1 % (41.0-53.0); Hemoglobin 14.1 g/dL (13.5-16.0); Immature Granulocytes Auto 0.03 Thou/mm3 (0.00-0.00); Lymphocytes # (Auto) 2.3 Thou/mm3 (1.0-4.8); Lymphocytes % (Auto) 25 % (10-50); Mean Corpuscular HGB Conc 35.2 g/dl (31.0-37.0); Mean Corpuscular Hemoglobin 29.2 pg (25.0-35.0); Mean Corpuscular Volume 83 fL (80-100); Monocytes # (Auto) 0.8 Thou/mm3 (0.0-0.8); Monocytes % (Auto) 8 % (0-12); Neutrophils # (Auto) 6.1 Thou/mm3 (1.8-7.7); Neutrophils % (Auto) 66 % (37-80); Nucleated Red Blood Cell # 0.00 Thou/mm3 (0.00-0.00); Nucleated Red Blood Cell % 0 /100 WBC (0); Platelet Count 211 Thou/mm3 (140-440); RDW Standard Deviation 38.4 fL (35.1-43.9); Red Blood Count 4.83 Miln/mm3 (4.50-5.90); White Blood Count 9.4 Thou/mm3 (3.8-10.6)
[2025-06-15 06:10] LABS: Glucose Estimated Average 332 mg/dL (80-131); Hemoglobin A1C 13.2 % Hgb (4.8-6.0)
[2025-06-15 06:29] LABS: Alanine Aminotransferase 18 U/L (10-49); Albumin, Serum 3.8 gm/dL (3.4-4.8); Albumin/Globulin Ratio 1.8 (1.2-2.2); Alkaline Phosphatase 83 U/L (46-116); Anion Gap 10 (7-16); Aspartate Amino Transferase 22 U/L (0-34); BUN/Creatinine Ratio 12 Ratio (12-20); Bilirubin,Total 0.7 mg/dL (0.3-1.2); Blood Urea Nitrogen 11 mg/dL (9-23); Calcium 8.7 mg/dL (8.3-10.6); Calcium (Corrected) 8.9 mg/dL (8.5-10.1); Carbon Dioxide 27.3 mMol/L (20.0-31.0); Cardiac Risk Estimate 3.9 RATIO (4.0-6.7); Chloride 101 mMol/L (98-107); Cholesterol 177 mg/dL (132-200); Creatinine (Component) 0.9 mg/dL (0.6-1.3); Estimated Creatinine Clearance 75.9 mL/min (>60); Globulin 2.1 gm/dL (2.3-3.5); Glucose 232 mg/dL (74-106); HDL Cholesterol 45 mg/dL (40-60); LDL Cholesterol,Calculated 112 mg/dL (0-130); Magnesium 1.5 mg/dL (1.6-2.6); Osmolality,Calculated 282 (275-295); Phosphorous 3.2 mg/dL (2.4-5.1); Potassium 3.5 mMol/L (3.4-5.1); Sodium 138 mMol/L (136-145); Total Protein 5.9 gm/dL (5.7-8.2); Triglycerides 102 mg/dL (30-150); eGFR > 60 See Note
--- NOTE | 2025-06-15 08:29 | XR_ITS ---
Examination: CT brain head without contrast. 2-D sagittal coronal reconstructions Date and time of exam: June 15, 2025, 0835 hours, comparison June 14, 2025 INDICATION: Stroke alert, unsteady gait and stroke alert on June 14, 2025, onset left-sided body weakness this morning CTDI: vol (mGy): 56.8 DLP: (mGycm): 1193 Technique: Multiple CT axial sections of the brain have been obtained, 5 mm slice thickness. Contrast has not been administered. 2-D sagittal, coronal reconstructions have been obtained Low dose protocols were performed. One or more of the following dose reduction techniques were used; automated exposure control, adjustment of the mA and/or KV according to patient size, use of iterative reconstruction technique. Findings: No significant ventricular enlargement. Intra-axial or extra-axial hemorrhage density is not seen. No mass effect or midline shift Basal cisterns are not remarkable. Fourth ventricle is midline. Cranial vault intact. Impression: Negative for acute hemorrhage, mass effect or midline shift Recommend brain MRI MRA without contrast, stroke protocol, follow-up
--- NOTE | 2025-06-15 08:33 | PC.NURSE ---
[employer] CALLED AT 0818 CHANGE IN CONDITION. STROKE ALERT CALLED AT 0820 NIH 10 AND CHANGE IN CONDITION. PT TRANSFER TO CT AT 0824 VIA [facility] PT ALERT AND ORIENTED X4.
--- NOTE | 2025-06-15 08:50 | PD.RESEVENT ---
Documentation for date of: 06/15/25 Event Note Event Note: 06/15 Stroke alert was called, MD Marcel Fermin, Lamberto and Sharon responded to pt at bedside. Pt VSS AxOx4. Physical exam revealed left-sided hemiparesis LUE LLE. No visual deficits elicited on exam. Facial droop on left side noted to be more pronounced than PM yesterday, otherwise cranial nerves intact, extraocular muscles normal strength. NIH Stroke Score Calculated at least 10, from previous 2 yesterday. Patient taken to CT for evaluation and called teleneurologist Dr. Abdiel Peterson. CT Head Noncontrast completed, no obvious evidence of hemorrhagic stroke. Currently at MRI. Pt evaluated and discussed with attending physician Dr. Luba Torrse and senior resident Dr. Marcel Fermin. Blake Herrera MD PGY-1
--- NOTE | 2025-06-15 09:31 | XR_ITS ---
Examination: CTA carotids with intravenous contrast CTA brain, head with intravenous contrast. 2-D sagittal, coronal reconstructions. 3-D reconstructions. Exam date and time: June 15, 2025, 0937 hours INDICATIONS: Stroke alert, onset left-sided body weakness today CTDI: vol (mGy) 17.4 DLP: (mGycm) 489 Technique: Multiple CTA axial brain, head carotid images post intravenous contrast injection 75 cc, [id number]. 2-D sagittal, coronal reconstructions. 3-D reconstructions, 3-D post processing including vascular maximum intensity projection images. Low dose protocols were performed. One or more of the following dose reduction techniques were used; automated exposure control, adjustment of the mA and/or KV according to patient size, use of iterative reconstruction technique. Findings: No significant common carotid carotid bifurcation or internal carotid artery stenoses Minimally dominant left vertebral artery in the neck with no critical stenoses Intracranial vertebral arteries basilar artery and posterior cerebral branches fill with no large vessel occlusions Moderate calcification juxtasellar portions internal carotid arteries M1 segments middle cerebral arteries middle cerebral artery trifurcation vessels anterior cerebral arteries fill no occlusions IMPRESSION: No significant neck arterial stenoses No cerebral large vessel arterial occlusions or thrombus
--- NOTE | 2025-06-15 10:10 | ESCONSULT_ITS ---
Tele Neuro Consultation Consultation Date 06/15/25 Most Recent Vital Signs Last Vital Signs Temp 97.9 F 06/15/25 08:00 Pulse 78 06/15/25 08:00 Resp 15 06/15/25 08:35 BP 166/91 H 06/15/25 08:35 Pulse Ox 98 06/15/25 08:00 O2 Del Method Room Air 06/15/25 08:00 Laboratory-Coagulation Panel PT 10.6 Seconds (9.0-12.2) 06/14/25 09:24 INR 1.0 (0.9-1.3) 06/14/25 09:24 APTT 26.3 Seconds (22.0-36.0) 06/14/25 09:24 Consultation Narrative [facility] TeleNeurology Consult Services Patient Name:???NAI TRUJILLO Date of :???1965 Identification Number:??? Date of Service:???06/15/2025 08:24:54 Diagnosis:?I63.89 - Cerebrovascular accident (CVA) due to other mechanism ([facility]) Impression: ?60yo M with a history of DM2, HTN, admitted 06/14 after a fall due to left sided weakness. NIHSS now 13, increased from a 1-2 on repeat assessments yesterday. CT head without acute hemorrhage. Hypodense regions involving the right severino radiata favored to be subacute ischemic change. MRI brain confirms acute/subacute ischemic change seen on repeat head CT. No LVO on repeat CTA head/neck. No intervention given LKW > 4.5 hours ago and based on repeat imaging. Our recommendations are outlined below. Recommendations: ? Neuro Checks (Q4) ? Bedside Swallow Eval ? DVT Prophylaxis ? IV Fluids, Normal Saline ? Euglycemia and Avoid Hyperthermia (PRN Acetaminophen) ? Antihypertensives PRN if Blood pressure is greater than 220/120 or there is a concern for End organ damage/contraindications for permissive HTN. If blood pressure is greater than 220/120 give labetalol PO or IV or Vasotec IV with a goal of 15% reduction in BP during the first 24 hours. ?Continue aspirin, Plavix per current regimen. Sign Out: ? Discussed with Primary Attending ? Discussed with Rapid Response Team Advanced Imaging:CTA Head and Neck Completed. LVO:No Patient is not a candidate for JUAN Metrics: Last Known Well: Unknown Activation Time: 06/15/2025 08:24:54 Initial Response Time: 06/15/2025 08:27:04Symptoms: left sided weakness. Initial patient interaction: 06/15/2025 08:35:17 NIHSS Assessment Completed: 06/15/2025 08:41:34Patient is not a candidate for Thrombolytic. Thrombolytic Medical Decision: 06/15/2025 08:41:35Patient was not deemed candidate for Thrombolytic because of following reasons: LKW outside 4.[address] Head: I personally reviewed all the CT images that were available to me and it showed: no acute hemorrhage. Hypodense regions involving the right severino radiata favored to be subacute ischemic change. Primary Provider Notified of Diagnostic Impression and Management Plan on: 06/15/2025 09:54:19 Spoke With: Dr. Torres Able to Reach 06/15/2025 09:54:19 History of Present Illness:Patient is a 60 year old Male. Inpatient stroke alert was called for symptoms of left sided weakness. 60yo M with a history of DM2, HTN, admitted 06/14 after a fall due to left sided weakness. Per chart, he was normal when he went to be on 06/13, but fell out of bed around 0200 yesterday due to his left side giving out. Initial NIHSS of 1 for a drift in the left upper extremity. Initial CTA head, CTA head/neck unremarkable so no intervention based on time and normal imaging. He was started on aspirin and Plavix. Today at 0700 noted to have worsening left sided weakness and slurred speech. No significant change in vitals per staff. ? Past Medical History: ?Hypertension ?Diabetes Mellitus Medications: No Anticoagulant use? Antiplatelet use:?Yes?aspirin, Plavix Reviewed EMR for current medications Allergies:? Reviewed Social History: Drug Use: No Family History: There is no family history of premature cerebrovascular disease pertinent to this consultation ROS : 14 Points Review of Systems was performed and was negative except mentioned in HPI. Past Surgical History: There Is No Surgical History Contributory To Today?s Visit ? Examination: BP(166/91),?Pulse(81),?Blood Glucose(232) 1A: Level of Consciousness - Alert; keenly responsive?+ 0 1B: Ask Month and Age - 1 Question Right?+ 1 1C: Blink Eyes & Squeeze Hands - Performs Both Tasks?+ 0 2: Test Horizontal Extraocular Movements - Normal?+ 0 3: Test Visual Suarez - No Visual Loss?+ 0 4: Test Facial Palsy (Use Grimace if Obtunded) - Partial paralysis (lower face)? + 2 5A: Test Left Arm Motor Drift - No Movement?+ 4 5B: Test Right Arm Motor Drift - No Drift for 10 Seconds?+ 0 6A: Test Left Leg Motor Drift - No Effort Against [place]?+ 3 6B: Test Right Leg Motor Drift - No Drift for 5 Seconds?+ 0 7: Test Limb Ataxia (FNF/Heel-Ward) - No Ataxia?+ 0 8: Test Sensation - Complete Loss: Cannot Sense Being Touched At All?+ 2 9: Test Language/Aphasia - Normal; No aphasia?+ 0 10: Test Dysarthria - Mild-Moderate Dysarthria: Slurring but can be understood?+ 1 11: Test Extinction/Inattention - No abnormality?+ 0 NIHSS Score:?13 Pre-Morbid Modified [place] Scale: 0 Points = No symptoms at all Spoke with :?Dr. Torres This consult was conducted in real time using interactive audio and video techn ology. Patient was informed of the technology being used for this visit and agreed to proceed. Patient located in hospital and provider located at home/office setting. Patient is being evaluated for possible acute neurologic impairment and high probability of imminent or life-threatening deterioration. I spent total of 35 minutes providing care to this patient, including time for face to face visit via telemedicine, review of medical records, imaging studies and discussion of findings with providers, the patient and/or family. Dr Abdiel Peterson [facility] For Inpatient follow-up with [facility] physician please call [facility] at . As we are not an outpatient service for any post hospital discharge needs please contact the hospital for assistance. If you have any questions for the [facility] physicians or need to reconsult for clinical or diagnostic changes please contact us via [facility] at . Non-radiologist review of imaging performed to assist with emergent clinical decision-making. Remote physician workstations do not possess the same resolution, calibration, or diagnostic capabilities as hospital-based radiology reading stations, and formal radiologist read is necessary. Signature :Bonnie Peterson
[2025-06-15] MEDS: CLOPIDOGREL BISULFATE 75 MG TABLET PO (10:14)
[2025-06-15] MEDS: PREGABALIN 75 MG CAPSULE PO (10:14)
[2025-06-15] MEDS: ASPIRIN EC 81 MG TABEC PO (10:14)
[2025-06-15] MEDS: LORazepam 2 MG/ML VIAL 1 MG IVP ×2 (10:15)
[2025-06-15] MEDS: ENOXAPARIN SOD INJ 40 MG/0.4 ML SYRINGE SC (10:15)
[2025-06-15] MEDS: ONDANSETRON INJ 2 MG/ML INJ 2 ML 4 MG IVP (10:24)
[2025-06-15] MEDS: INSULIN DEGLUDEC 5 UNIT/0.05 ML (PER 5 UNITS) 10 UNIT SC (10:42)
[2025-06-15] MEDS: MORPHINE SULF INJ 4 MG/ML VIAL 1 MG IVP (10:42)
[2025-06-15] MEDS: RINGERS LACTATED 1000 ML 1,000 ML 75 ML IV (10:50)
--- NOTE | 2025-06-15 11:28 | PCS.ST ---
Swallow Evaluation completed. See report for details. Dysphagia 2 diet/regular liquids w/ precautions for pocketing. No s/s of aspiration. ST will follow up.
[2025-06-15] MEDS: INSULIN LISPRO (AdmeLOG) 1 UNIT/0.01 ML UNIT SC (12:30)
--- NOTE | 2025-06-15 12:47 | ESPR_ITS ---
<Statement entered by Lj Fermin MD - 06/15/25 16:43> No acute overnight events. However, in a.m. patient noted to have new focal neurological deficits. On examination, unable to lift left upper and left lower extremities and had left-sided facial droop with slurred speech. NIHSS approximately 14 and rapid response/stroke alert called. Please see event note for details. Spoke to teleneurologist to reviewed images and stated that no concerns for LVO and to continue current management. MRI obtained and showed multiple acute infarcts in the right parietal lobe. Echo obtained with bubble study and will follow-up on results. Otherwise, vital signs stable. CBC unremarkable, CHEM panel showing A1c of 13.2%, mildly low magnesium, LDL 112 and HDL 45. Will follow-up on neurology recommendations. ----- Note reviewed and agree with care plan as documented. Please refer to the note below for further details. Plan discussed with attending physician Dr. Melissa Fermin MD PGY-2 Internal Medicine Documentation for date of: 06/15/25 Subjective Subjective Interval history: NAEO but responded to a code stroke initiated at 0820 - Mr. Davis began experiencing LUE LLE paralysis. Evaluated patient at bedside, VSS. Visual alejandra in tact, CN intact. 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 Taken to CT for CT noncon which did not show any acute findings. Then taken to MRI suite for MRA. Dr. Abdiel Peterson teleneuro consulted and discussed patient: had 300 plavix already, is already on DAPT, approrpiate tx. Recommended permissive HTN s/p negative CT noncon, 220/120 threshold. CTA doneL No significant neck arterial stenoses No cerebral large vessel arterial occlusions or thrombus MRA nonon done: Multiple acute infarcts right parietal lobe Dr. Peterson: no thrombolytic candidate, outside 4.5 LKW, hypodense changes involving the right severino radiata favored to be subacute ischemic change. To contue current DAPT regimen. Exam Vital Signs Temp Pulse Resp BP Pulse Ox O2 Del Method 97.1 F 79 18 142/67 H 98 Room Air 06/15/25 12:00 06/15/25 12:00 06/15/25 12:00 06/15/25 12:00 06/15/25 12:00 06/15/25 12:00 Narrative Exam General: alert and oriented to self/place/year, no acute distress, able to speak full sentences but slightly dysarthric. No receptive aphasia noted. AxOx4 GCS 15 HEENT: NC/AT, mucous membranes moist, bilateral sclera anicteric; worsened L face droop vs yesterday evaluation Cardiovascular: regular rate and rhythm, S1/S2 present, no murmurs appreciated Pulmonary: clear to auscultation bilaterally, no rales/rhonchi/wheezes Abdominal: soft, nontender, present bowel sounds Musculoskeletal: no peripheral edema Neuro: L-sided hemiparesis on LLE LUE Skin: Warm, well-perfused Objective Labs 06/16/25 05:35 06/16/25 05:35 Labs: Laboratory Results - last 24 hr 06/14/25 06/14/25 06/15/25 09:24 11:25 05:03 WBC 9.4 D RBC 4.83 Hgb 14.1 Hct 40.1 L MCV 83 MCH 29.2 MCHC 35.2 RDW Std Deviation 38.4 Plt Count 211 Neut % (Auto) 66 Lymph % (Auto) 25 Whitley % (Auto) 8 Eos % (Auto) 1 Baso % (Auto) 0 Neut # (Auto) 6.1 Lymph # (Auto) 2.3 Whitley # (Auto) 0.8 Eos # (Auto) 0.1 Baso # (Auto) 0.0 Immature Gran # (Auto) 0.03 H Absolute Nucleated RBC 0.00 Immature Gran % 0 Nucleated RBC % 0 Sodium 138 Potassium 3.5 Chloride 101 Carbon Dioxide 27.3 Anion Gap 10 BUN 11 Creatinine 0.9 Estim Creat Clear Calc 75.9 eGFR > 60 BUN/Creatinine Ratio [address] Glu mg/dL 332 H Hemoglobin A1c 13.2 H Calculated Osmolality 282 Calcium 8.7 Corrected Calcium 8.9 Phosphorus 3.2 Magnesium 1.5 L Total Bilirubin 0.7 AST 22 ALT 18 Alkaline Phosphatase 83 D Total Protein 5.9 Albumin 3.8 D Globulin 2.1 L Albumin/Globulin Ratio 1.8 Triglycerides 102 Cholesterol 177 LDL Cholesterol, Calc 112 HDL Cholesterol 45 Cholesterol/HDL Ratio 3.9 L Urine Opiates Screen Negative Urine Fentanyl Screen Negative Ur Barbiturates Screen Negative U Amphetamin/Meth Scrn Negative U Benzodiazepines Scrn Negative U Cocaine Metab Screen Negative U Marijuana (THC) Screen Negative Ethyl Alcohol < 3.0 Quality Measures Quality Measures none Assessment & Plan Assessment Current Active Medications: Generic Name Dose Route Start Last Admin Trade Name Freq PRN Reason Stop Dose Admin Acetaminophen 650 mg 06/14/25 17:20 Acetaminophen 325 Mg Tablet PO 07/14/25 17:19 Q6H PRN PAIN OR FEVER > 100.4 Aspirin 81 mg 06/15/25 09:00 06/15/25 10:14 Aspirin Ec 81 Mg Tabec PO 07/15/25 08:59 81 mg DAILY JAYE Administration Atorvastatin Calcium 40 mg 06/14/25 21:00 06/14/25 20:33 Atorvastatin Calcium 20 Mg Tablet PO 07/14/25 20:59 Not Given HS JAYE Clopidogrel Bisulfate 75 mg 06/15/25 09:00 06/15/25 10:14 Clopidogrel Bisulfate 75 Mg Tablet PO 07/15/25 08:59 75 mg DAILY JAYE Administration Dextrose 25 ml 06/14/25 17:30 Dextrose 50%-Water Inj 50 Ml Syringe IV 07/14/25 17:29 Q15MIN PRN BG 50-70 responsive npo pt Dextrose 50 ml 06/14/25 17:30 Dextrose 50%-Water Inj 50 Ml Syringe IV 07/14/25 17:29 Q15MIN PRN BG <50 OR BG <70 & pt unresponsive Enoxaparin Sodium 40 mg 06/15/25 09:00 06/15/25 10:15 Enoxaparin Sod Inj 40 Mg/0.4 Ml Syringe SC 06/29/25 08:59 40 mg QDAY JAYE Administration Glucagon 1 mg 06/14/25 17:30 Glucagon Inj 1 Mg Vial IM Q15MIN PRN BG <70, and no IV access Lactated Ringer's 1,000 mls @ 75 mls/hr 06/14/25 17:30 06/15/25 10:50 Lactated Ringers IV 07/14/25 17:29 75 mls/hr .[id number] JAYE Administration Insulin Degludec 10 unit 06/15/25 09:00 06/15/25 10:42 Insulin Degludec 5 Unit/0.05 Ml (Per 5 Units) SC 07/15/25 08:59 10 unit QDAY JAYE Administration Insulin Human Lispro 0 unit 06/15/25 07:52 Insulin Lispro (Admelog) 1 Unit/0.01 Ml Unit SC 07/15/25 00:00 Q6HR JAYE Protocol Labetalol HCl 20 mg 06/14/25 17:30 Labetalol Inj 5 Mg/Ml Vial 4 Ml IVP 07/14/25 17:29 Q10MIN PRN SBP >160 OR DBP >110 Ondansetron HCl 4 mg 06/14/25 17:20 06/15/25 10:24 Ondansetron Inj 2 Mg/Ml Inj 2 Ml IVP 07/14/25 17:19 4 mg Q6H PRN Administration NAUSEA OR VOMITING Protocol Pregabalin 75 mg 06/15/25 09:00 06/15/25 10:14 Pregabalin 75 Mg Capsule PO 07/15/25 08:59 75 mg QDAY JAYE Administration Plan 60 year old male with a past medical history significant for type 2 diabetes mellitus, hyperlipidemia, neuropathy who is being admitted for stroke work up. #CVA #Subacute Stroke #LLE LUE Paralysis #Facial Droop Fall @ 0200 06/13 Neurological exam noted for L sided face droop, LLE weakness and LUE pronation No dysarthria/dysphagia 06/14 AM consulted Neurology Head CT negative for hemorrhage 06/14 EKG sinus rhythm Differential = Stroke >>> TIA >> other 06/15 Acute Stroke Called, taken to CT and MRI; Left sided paralysis CT Head Noncon + CTA insignificant for flow problems/acute hemorrhage MRI = diffuse R parietal infarctions 06/15 AM No Throbolytics - outside 4.5hr window Most likely a subacute infarction manifesting this AM 06/15 Neuro Recommendations: Stroke/Telemetry Floor Neuro Checks (Q4) ? DVT Prophylaxis Head of Bed 30 Degrees Plavix 300 given 06/14 DAPT 81 75 started 06/14 Permissive HTN 220/120, otherwise give labetalol PO w/ goal of 15% reduction in first 24h from 06/14 -Med tele for continued stroke care -Swallow eval passed -Permissive HTN with PRN labetalol -Daily CBC CMP Mg Phos -ECHO done, pending read -Follow up Neurology inpt evaluation and recommendations #Type 2 diabetes mellitus Takes metformin 850 mg daily at home A1c 06/15 AM 13% -ISS -Hypoglycemic protocol in place -Follow up daily labs -Follow-up A1c #HLD at home on Pravastatin 10mg q24h -Continue on Atorvastatin 40mg PO HS #Neuropathy -Resume home pregabalin 75mg q24h Hospital management: Disposition: Stroke management inpatient Fluids: LR 75ml/hr Diet: NPO Lines: PIV DVT prophylaxis: Enoxaparin 40mg q24h CODE STATUS: full code Patient seen and discussed with attending physician Dr. Luba Torres and senior resident Dr. Lj Herrera MD PGY-1 Attending Provider Attestation/Addendum ILuba, DO, attest that I was physically present for the samayoa portions of the service and evaluated the patient with the resident and I reviewed and discussed the case with the resident and agree with the resident's findings and plans of care as documented above Patient seen and evaluated this AM. He had been noted to have a change in status at shift change during which patient had an NIHSS score of 4 which progressed to 10 this morning. He was noted to have left sided hemiplegia. Gross sensation intact. Tongue is deviated to left, left facial droop noted, LUE and LLE are flaccid. EOMI. He denies any diplopia or nausea. Patient did endorse headache and anxiety at time of stroke alert. MRI shows multiple acute infarcts of right parietal region. Case discussed with tele-neuro who suspects that strokes are subacute. No further intervention or TpA is recommended. Continue wtih DAPT. Results of MRI were discussed with patient and his nephew at bedside. Pending echocardiogram and rest of stroke w/u.
--- NOTE | 2025-06-15 14:48 | PC.SS ---
Patient is is alert/oriented. Patient is Kiswahili speaking only. Patient's nephew, Douglas Burden, was present. Douglas states he will be patient's alt medical decision maker and help out with anything we needed. Patient verbalized he resides with his nephew Josh. Patient works in the [employer] and was independent with all ADL's prior to hospitalization. Patient admitted for stroke. PT worked with patient and stated he would potentially need acute rehab. Patient listed as self pay. SS worked with financial counselor who was able to apply for [employer] effe[employer]. today. Patient will have this for 30 days until he follows up with permanent coverage. Patient plans on staying longer due to condition. Patient states his nephew will help him with all paperwork. Patient has been to [facility]. Alt medical decision maker: Douglas Burden nephmaryse,
[2025-06-15] MEDS: PANTOPRAZOLE 40 MG TABLET PO (17:47)
[2025-06-15] MEDS: INSULIN LISPRO (AdmeLOG) 1 UNIT/0.01 ML UNIT 10 UNIT SC (17:47)
--- NOTE | 2025-06-15 18:35 | XR_ITS ---
EXAMINATION: AP chest single view TECHNIQUE: AP portable semiupright chest single view Date and time: June 15, 2025, 1931 hours, comparison June 14, 2025 0908 hours INDICATION: Shortness of breath congestion today. FINDINGS: Normal heart size No aspiration pneumonia Moderate osteopenia IMPRESSION: Negative for aspiration pneumonia
--- NOTE | 2025-06-15 19:31 | PD.RESCONSUL ---
HPI Data of Consult Requesting Physician: Luba Torres DO Admitting Provider: Miguel Clay MD Attending Provider: Luba Torres DO Primary Care Provider: Physician No Primary/Family Consult Narrative History of present illness: Patient is a 60-year-old Luxembourger-speaking male with a past medical history significant for type 2 diabetes mellitus, hypertension, hyperlipidemia, and peripheral neuropathy who presented on 06/14/2025 after a ground level fall at home. Patient is a poor historian however reported that around 2:00 am patient was going to the restroom but suffered a fall. He reported that he felt like his left leg 'gave in' but initially thought nothing of it. Then later in the morning he started getting a headache to which he went to the emergency department. Initially reported ongoing headache as well as flank pain without hematuria. After he stated that he had left-sided weakness, a stroke workup was initiated and Teleneuro evaluated the patient, NIHSS score was 1-3 at that time, head CT and head/neck CTA were negative, but patient was recommended for admission and further stroke rule out. Patient was loaded with 300 mg Plavix and 81 mg aspirin. Today on 06/15/2025 patient was noted to have significantly worsened left sided paralysis, left sided facial droop, and slurred speech around 8:00 am initiating a rapid response and stroke alert. That time his NIHSS score increased to 10-13. CT head showed evolving acute/subacute ischemic stroke according to Teleneuro and MRI/MRA brain showed multiple infarcts in the right parietal lobe. Neurology was consulted to follow in the setting of new acute ischemic stroke. cc:: cc: Luba Torres DO Past Medical History Past Medical History Comments PMH COMMENT: Past Medical History: Type 2 diabetes mellitus, hypertension, hyperlipidemia, and peripheral neuropathy Family History: Significant for diabetes and hypertension in family members Surgical History: None Social History: Denies history of smoking, denies current alcohol use, denies recreational drug use Current Medications: Metformin 850 mg qday, pravastatin 10 mg qday, pregabalin 75 mg qday, clonazepam 2 mg qday, and naproxen 220 mg BID prn (Source: [employer] rec) Allergies: No known drug allergies Exam Vital Signs Temp Pulse Resp BP Pulse Ox O2 Del Method 98.1 F 76 16 159/85 H 98 Room Air 06/16/25 08:00 06/16/25 08:00 06/16/25 08:00 06/16/25 08:00 06/16/25 08:00 06/16/25 08:00 Narrative Exam Physical Exam General: Awake and in no acute distress. Conversational and non-toxic appearing. HEENT: Normocephalic, atraumatic, mucous membranes moist. Heart: Regular rate and rhythm, normal S1 and S2, no murmurs. Lungs: Clear to auscultation with no wheezing or crackles. Abdomen: Soft, nondistended, nontender, positive bowel sounds. ?No guarding or rebound tenderness. Neuro Stroke Exam: -Alert and oriented x3. -CN II-XII intact. -Normal visual alejandra. -Normal fluent speech. -Obvious left-sided facial droop. -Strength 5/5 right arm, 5/5 right reinsurance analyst strength. 1/5 left arm strength, 1/5 left reinsurance analyst strength. -Strength 5/5 right lower extremity. 1/5 left lower extremity. Only muscle twitch but no movement off bed. -Intact sensation bilaterally. -Normal [id number], normal oola-[id number] testing. Extremities: No edema. Skin: No rash or ecchymoses. Results Labs 06/17/25 04:43 06/17/25 04:43 Labs: Short CBC 06/16/25 Range/Units 05:35 WBC 11.3 H (3.8-10.6) Thou/mm3 Hgb 14.6 (13.5-16.0) g/dL Hct 41.0 (41.0-53.0) % Plt Count 225 (140-440) Thou/mm3 [facility] 06/16/25 05:35 Sodium 141 Potassium 3.9 Chloride 104 Carbon Dioxide 27.2 BUN 11 Creatinine 0.9 Glucose 167 H D Calcium 8.8 Liver Function 06/16/25 Range/Units 05:35 Total Bilirubin 0.7 (0.3-1.2) mg/dL AST 20 (0-34) U/L ALT 17 (10-49) U/L Alkaline Phosphatase 73 (46-116) U/L Albumin 3.7 (3.4-4.8) gm/dL Quality Measures Quality Measures none Medications Home Medications and Allergies Home Medications ?Medication ?Instructions ?Recorded ?Confirmed ?Type clonazepam 2 mg tablet (Klonopin) 2 mg PO QDAY 06/14/25 06/14/25 History metformin 850 mg PO DAILY diabetes 06/14/25 06/14/25 History naproxen sodium 220 mg tablet 220 mg PO BID PRN pain 06/14/25 06/14/25 History (Flanax (naproxen)) Held on 06/17/25. Instructions: Hold until you follow-up with your PCP pregabalin 75 mg capsule (Lyrica) 75 mg PO QDAY 06/14/25 06/14/25 History Allergies Allergy/AdvReac Type Severity Reaction Status Date / Time No Known Allergies Allergy Verified 06/14/25 08:17 Visit Medications Acetaminophen (Acetaminophen 325 Mg Tablet) 650 mg PO Q6H PRN PRN Reason: PAIN OR FEVER > 100.4 Stop: 07/14/25 17:19 Aspirin (Aspirin Ec 81 Mg Tabec) 81 mg PO DAILY JAYE Stop: 07/15/25 08:59 Last Admin: 06/16/25 08:05 Dose: Not Given Atorvastatin Calcium (Atorvastatin Calcium 20 Mg Tablet) 40 mg PO HS JAYE Stop: 07/14/25 20:59 Last Admin: 06/15/25 21:20 Dose: Not Given Clopidogrel Bisulfate (Clopidogrel Bisulfate 75 Mg Tablet) 75 mg PO DAILY JAYE Stop: 07/15/25 08:59 Last Admin: 06/16/25 08:05 Dose: Not Given Dextrose (Dextrose 50%-Water Inj 50 Ml Syringe) 25 ml IV Q15MIN PRN PRN Reason: BG 50-70 responsive npo pt Stop: 07/14/25 17:29 Dextrose (Dextrose 50%-Water Inj 50 Ml Syringe) 50 ml IV Q15MIN PRN PRN Reason: BG <50 OR BG <70 & pt unresponsive Stop: 07/14/25 17:29 Enoxaparin Sodium (Enoxaparin Sod Inj 40 Mg/0.4 Ml Syringe) 40 mg SC QDAY JAYE Stop: 06/29/25 08:59 Last Admin: 06/16/25 08:04 Dose: 40 mg Glucagon (Glucagon Inj 1 Mg Vial) 1 mg IM Q15MIN PRN PRN Reason: BG <70, and no IV access Lactated Ringer's (Lactated Ringers) 1,000 mls @ 75 mls/hr IV .[id number] [facility] Stop: 07/14/25 17:29 Last Admin: 06/16/25 01:00 Dose: 75 mls/hr Insulin Degludec (Insulin Degludec 5 Unit/0.05 Ml (Per 5 Units)) 10 unit SC QDAY [facility] Stop: 07/15/25 08:59 Last Admin: 06/16/25 08:05 Dose: Not Given Insulin Human Lispro (Insulin Lispro (Admelog) 1 Unit/0.01 Ml Unit) 0 unit SC Q6HR [facility]; Protocol Stop: 07/16/25 00:00 Last Admin: 06/16/25 05:12 Dose: Not Given Labetalol HCl (Labetalol Inj 5 Mg/Ml Vial 4 Ml) 20 mg IVP Q10MIN PRN PRN Reason: SBP >160 OR DBP >110 Stop: 07/14/25 17:29 Ondansetron HCl (Ondansetron Inj 2 Mg/Ml Inj 2 Ml) 4 mg IVP Q6H PRN; Protocol PRN Reason: NAUSEA OR VOMITING Stop: 07/14/25 17:19 Last Admin: 06/15/25 10:24 Dose: 4 mg Pantoprazole Sodium (Pantoprazole 40 Mg Tablet) 40 mg PO QDAY [facility] Stop: 07/16/25 08:59 Last Admin: 06/16/25 08:05 Dose: Not Given Pregabalin (Pregabalin 75 Mg Capsule) 75 mg PO QDAY [facility] Stop: 07/15/25 08:59 Last Admin: 06/16/25 08:05 Dose: Not Given Discontinued Medications Clopidogrel Bisulfate (Clopidogrel Bisulfate 75 Mg Tablet) 300 mg PO X1 ONE Stop: 06/14/25 15:10 Last Admin: 06/14/25 15:17 Dose: 300 mg Hydralazine HCl (Hydralazine Hcl 10 Mg Tablet) 10 mg PO X1 ONE Stop: 06/14/25 14:04 Last Admin: 06/14/25 15:17 Dose: 10 mg Hydralazine HCl (Hydralazine Inj 20 Mg/Ml Vial) 10 mg IVP X1 ONE Stop: 06/14/25 16:39 Last Admin: 06/14/25 17:10 Dose: 10 mg Insulin Human Lispro (Insulin Lispro (Admelog) 1 Unit/0.01 Ml Unit) 0 unit SC AC [facility]; Protocol Stop: 07/15/25 07:29 Insulin Human Lispro (Insulin Lispro (Admelog) 1 Unit/0.01 Ml Unit) 0 unit SC Q6HR JAYE; Protocol Stop: 07/15/25 00:00 Last Admin: 06/15/25 05:19 Dose: Not Given Insulin Human Lispro (Insulin Lispro (Admelog) 1 Unit/0.01 Ml Unit) 0 unit SC Q6HR [facility]; Protocol Stop: 07/15/25 00:00 Last Admin: 06/15/25 12:30 Dose: 4 unit Insulin Human Lispro (Insulin Lispro (Admelog) 1 Unit/0.01 Ml Unit) 0 unit SC AC [facility]; Protocol Stop: 07/16/25 07:29 Insulin Human Lispro (Insulin Lispro (Admelog) 1 Unit/0.01 Ml Unit) 10 unit SC X1 ONE Stop: 06/15/25 17:28 Last Admin: 06/15/25 17:47 Dose: 10 unit Ketorolac Tromethamine (Ketorolac Inj 30 Mg/Ml Vial) 30 mg IM X1 ONE Stop: 06/14/25 10:31 Last Admin: 06/14/25 10:43 Dose: 30 mg Lorazepam (Lorazepam 2 Mg/Ml Vial) 1 mg IVP X1 ONE Stop: 06/15/25 09:30 Last Admin: 06/15/25 10:15 Dose: 1 mg Morphine Sulfate (Morphine Sulf Inj 4 Mg/Ml Vial) 1 mg IVP X1 ONE Stop: 06/15/25 09:32 Last Admin: 06/15/25 10:42 Dose: 1 mg Nifedipine (Nifedipine Xl 30 Mg Tabcr) 30 mg PO X1 ONE Stop: 06/14/25 12:56 Last Admin: 06/14/25 13:31 Dose: 30 mg Pantoprazole Sodium (Pantoprazole 40 Mg Tablet) 40 mg PO X1 ONE Stop: 06/15/25 17:29 Last Admin: 06/15/25 17:47 Dose: 40 mg Assessment & Plan Plan 60-year-old Luxembourger-speaking male with a past medical history significant for type 2 diabetes mellitus, hypertension, hyperlipidemia, and peripheral neuropathy who presented on 06/14/2025 after a ground level fall at home, found to have an acute right parietal ischemic stroke, and neurology is consulted for further management. #Acute right parietal ischemic stroke #Left hemiplegia #Left facial droop #Dysarthria #Dysphagia Patient presented after ground level fall, initially with left sided weakness but on presentation NIHSS only 1-3. Had a second stroke alert while inpatient the second day in which NIHSS worsened to 10-13. CT head and CTA head/neck negative both times for hemorrhage or large vessel occlusion respectively. MRI/MRA brain 06/25/2025 showed multiple acute infarcts in the right parietal lobe. A1c is 13.2 indicating very poor control of diabetes TG 102, TC 177, LDL 112, HDL 45 -Patient will need dual antiplatelet therapy for 21 days followed by Plavix alone -Continue aspirin 81 mg qday -Continue Plavix 75 mg qday -Continue atorvastatin 40 mg qday -Aggressive control of BP, glucose, and lipids -Patient will need intense rehabilitation and acute rehab Rest of conditions to continue current management per primary team: #History of type 2 diabetes #History of hypertension #History of hyperlipidemia Patient was discussed with the Neurology attending, Dr. Christy. Thank you for allowing us to participate in the care of this patient. Alejandra Nelson, PGY-3 Attending Provider Attestation/Addendum I personally have seen and examined the patient at the bedside and I agreed with the resident's findings assessment and plan of care. Patient with left hemiparesis involving face arm and leg. Continue with blood pressure management, dual antiplatelet therapy and follow-up with rest of the workup tomorrow.
[2025-06-16] VITALS (10 sets, daily range): BP systolic 143–184; BP diastolic 79–92; PULSE 63–86; RESP 16–98; TEMP 36.6–37.2; O2SAT 96–99; BMI 25.0; BMI 12.0
[2025-06-16] MEDS: RINGERS LACTATED 1000 ML 1,000 ML 75 ML IV ×2 (01:00→15:43)
[2025-06-16 06:11] LABS: Basophils # (Auto) 0.0 Thou/mm3 (0.0-0.2); Basophils % (Auto) 0 % (0-2.5); Eosinophils # (Auto) 0.1 Thou/mm3 (0.0-0.5); Eosinophils % (Auto) 0 % (0-10); Hematocrit 41.0 % (41.0-53.0); Hemoglobin 14.6 g/dL (13.5-16.0); Immature Granulocytes Auto 0.03 Thou/mm3 (0.00-0.00); Lymphocytes # (Auto) 2.4 Thou/mm3 (1.0-4.8); Lymphocytes % (Auto) 21 % (10-50); Mean Corpuscular HGB Conc 35.6 g/dl (31.0-37.0); Mean Corpuscular Hemoglobin 29.5 pg (25.0-35.0); Mean Corpuscular Volume 83 fL (80-100); Monocytes # (Auto) 0.9 Thou/mm3 (0.0-0.8); Monocytes % (Auto) 8 % (0-12); Neutrophils # (Auto) 7.9 Thou/mm3 (1.8-7.7); Neutrophils % (Auto) 70 % (37-80); Nucleated Red Blood Cell # 0.00 Thou/mm3 (0.00-0.00); Nucleated Red Blood Cell % 0 /100 WBC (0); Platelet Count 225 Thou/mm3 (140-440); RDW Standard Deviation 38.7 fL (35.1-43.9); Red Blood Count 4.95 Miln/mm3 (4.50-5.90); White Blood Count 11.3 Thou/mm3 (3.8-10.6)
[2025-06-16 06:39] LABS: Alanine Aminotransferase 17 U/L (10-49); Albumin, Serum 3.7 gm/dL (3.4-4.8); Albumin/Globulin Ratio 1.6 (1.2-2.2); Alkaline Phosphatase 73 U/L (46-116); Anion Gap 10 (7-16); Aspartate Amino Transferase 20 U/L (0-34); BUN/Creatinine Ratio 12 Ratio (12-20); Bilirubin,Total 0.7 mg/dL (0.3-1.2); Blood Urea Nitrogen 11 mg/dL (9-23); Calcium 8.8 mg/dL (8.3-10.6); Calcium (Corrected) 9.0 mg/dL (8.5-10.1); Carbon Dioxide 27.2 mMol/L (20.0-31.0); Chloride 104 mMol/L (98-107); Creatinine (Component) 0.9 mg/dL (0.6-1.3); Estimated Creatinine Clearance 73.1 mL/min (>60); Globulin 2.3 gm/dL (2.3-3.5); Glucose 167 mg/dL (74-106); Magnesium 1.6 mg/dL (1.6-2.6); Osmolality,Calculated 284 (275-295); Phosphorous 3.1 mg/dL (2.4-5.1); Potassium 3.9 mMol/L (3.4-5.1); Sodium 141 mMol/L (136-145); Total Protein 6.0 gm/dL (5.7-8.2); eGFR > 60 See Note
[2025-06-16] MEDS: ENOXAPARIN SOD INJ 40 MG/0.4 ML SYRINGE SC (08:04)
--- NOTE | 2025-06-16 09:46 | PC.SS ---
Addendum entered by Gladis Gabriel 06/16/25 15:56: SS had a family discussion with patient's nephew, Douglas, his and son. interpreter present. Family states [facility] final [facility]c [facility]. SS explained that both [facility] and [facility] accepted. SS also expressed the importance of following up on his [facility] to ensure this is permanent by providing all verifications. Family understood. Family states they prefer [facility] rehab. Patient is a little confused today. SS will [facility]. Final plan is patient will stay with nephew once he leaves rehab. Patient's is in [place] and they are requesting a letter to consulate. Original Note: follow up note: SS reviewed [facility] and patient was accepted at [facility]. They are looking at end of week if patient is medically ready. Family expressed interest in [facility], however, they have not provided a response.
--- NOTE | 2025-06-16 15:21 | ESPR_ITS ---
<Statement entered by Lj Fermin MD - 06/16/25 15:54> No acute overnight events. Seen and examined at bedside and patient resting comfortably in bed. Neurological exam unchanged from yesterday as he is unable to move his left upper and lower extremities and continues to have left-sided facial droop. There were concerns for aspiration for which a CXR was obtained but was negative. Seen again by speech therapy and recommended dysphagia 1 diet which was started. MRI again noted to have multiple acute infarcts in right parietal lobe. Echo read pending and will neurology recommending DAPT for 21 days. Patient accepted to acute rehab at [facility]. ----- Note reviewed and agree with care plan as documented. Please refer to the note below for further details. Plan discussed with attending physician Dr. Melissa Fermin MD PGY-2 Internal Medicine Documentation for date of: 06/16/25 Subjective Subjective Interval history: Nursing concerns for aspiration in the afternoon warranted an CXR, to which was negative. Patient was made NPO overnight. Swallow eval by Speech Therapy done, patient put on dysphagia 1 - soft pureed diet. Overall Mr. Davis is more reserved s/p hemiparesis, he is able to answer questions with full mentation but affect is somber. Moter deficits still present: L sided paralysis in both upper and lower extremities. Pending Rehab workup and continued management. Exam Vital Signs Temp Pulse Resp BP Pulse Ox O2 Del Method 97.9 F 81 17 148/79 H 97 Room Air 06/16/25 12:00 06/16/25 12:00 06/16/25 12:00 06/16/25 12:00 06/16/25 12:00 06/16/25 12:00 Objective Labs 06/16/25 05:35 06/16/25 05:35 Labs: Laboratory Results - last 24 hr 06/16/25 05:35 WBC 11.3 H RBC 4.95 Hgb 14.6 Hct 41.0 MCV 83 MCH 29.5 MCHC 35.6 RDW Std Deviation 38.7 Plt Count 225 Neut % (Auto) 70 Lymph % (Auto) 21 [place] % (Auto) 8 Eos % (Auto) 0 Baso % (Auto) 0 Neut # (Auto) 7.9 H Lymph # (Auto) 2.4 [place] # (Auto) 0.9 H Eos # (Auto) 0.1 Baso # (Auto) 0.0 Immature Gran # (Auto) 0.03 H Absolute Nucleated RBC 0.00 Immature Gran % 0 Nucleated RBC % 0 Sodium 141 Potassium 3.9 Chloride 104 Carbon Dioxide 27.2 Anion Gap 10 BUN 11 Creatinine 0.9 Estim Creat Clear Calc 73.1 eGFR > 60 BUN/Creatinine Ratio 12 Glucose 167 H D Calculated Osmolality 284 Calcium 8.8 Corrected Calcium 9.0 Phosphorus 3.1 Magnesium 1.6 Total Bilirubin 0.7 AST 20 ALT 17 Alkaline Phosphatase 73 Total Protein 6.0 Albumin 3.7 Globulin 2.3 Albumin/Globulin Ratio 1.6 Quality Measures Quality Measures none Assessment & Plan Assessment Current Active Medications: Generic Name Dose Route Start Last Admin Trade Name Freq PRN Reason Stop Dose Admin Acetaminophen 650 mg 06/14/25 17:20 Acetaminophen 325 Mg Tablet PO 07/14/25 17:19 Q6H PRN PAIN OR FEVER > 100.4 Aspirin 81 mg 06/15/25 09:00 06/16/25 08:05 Aspirin Ec 81 Mg Tabec PO 07/15/25 08:59 Not Given DAILY JAYE Atorvastatin Calcium 40 mg 06/14/25 21:00 06/15/25 21:20 Atorvastatin Calcium 20 Mg Tablet PO 07/14/25 20:59 Not Given HS JAYE Clopidogrel Bisulfate 75 mg 06/15/25 09:00 06/16/25 08:05 Clopidogrel Bisulfate 75 Mg Tablet PO 07/15/25 08:59 Not Given DAILY JAYE Dextrose 25 ml 06/14/25 17:30 Dextrose 50%-Water Inj 50 Ml Syringe IV 07/14/25 17:29 Q15MIN PRN BG 50-70 responsive npo pt Dextrose 50 ml 06/14/25 17:30 Dextrose 50%-Water Inj 50 Ml Syringe IV 07/14/25 17:29 Q15MIN PRN BG <50 OR BG <70 & pt unresponsive Enoxaparin Sodium 40 mg 06/15/25 09:00 06/16/25 08:04 Enoxaparin Sod Inj 40 Mg/0.4 Ml Syringe SC 06/29/25 08:59 40 mg QDAY JAYE Administration Glucagon 1 mg 06/14/25 17:30 Glucagon Inj 1 Mg Vial IM Q15MIN PRN BG <70, and no IV access Lactated Ringer's 1,000 mls @ 75 mls/hr 06/14/25 17:30 06/16/25 01:00 Lactated Ringers IV 07/14/25 17:29 75 mls/hr .[id number] JAYE Administration Insulin Degludec 10 unit 06/15/25 09:00 06/16/25 08:05 Insulin Degludec 5 Unit/0.05 Ml (Per 5 Units) SC 07/15/25 08:59 Not Given QDAY JAYE Insulin Human Lispro 0 unit 06/16/25 00:00 06/16/25 11:49 Insulin Lispro (Admelog) 1 Unit/0.01 Ml Unit SC 07/16/25 00:00 Not Given Q6HR [facility] Protocol Labetalol HCl 20 mg 06/14/25 17:30 Labetalol Inj 5 Mg/Ml Vial 4 Ml IVP 07/14/25 17:29 Q10MIN PRN SBP >160 OR DBP >110 Ondansetron HCl 4 mg 06/14/25 17:20 06/15/25 10:24 Ondansetron Inj 2 Mg/Ml Inj 2 Ml IVP 07/14/25 17:19 4 mg Q6H PRN Administration NAUSEA OR VOMITING Protocol Pantoprazole Sodium 40 mg 06/16/25 09:00 06/16/25 08:05 Pantoprazole 40 Mg Tablet PO 07/16/25 08:59 Not Given QDAY [facility] Pregabalin 75 mg 06/15/25 09:00 06/16/25 08:05 Pregabalin 75 Mg Capsule PO 07/15/25 08:59 Not Given QDAY [facility] Plan 60 year old male with a past medical history significant for type 2 diabetes mellitus, hyperlipidemia, neuropathy who is being admitted for stroke work up. #CVA #Subacute Stroke #LLE LUE Paralysis #Facial Droop Fall @ 0200 06/13 Neurological exam noted for L sided face droop, LLE weakness and LUE pronation No dysarthria/dysphagia 06/14 AM consulted Neurology Head CT negative for hemorrhage 06/14 EKG sinus rhythm 06/15 Acute Stroke Called, taken to CT and MRI; Left sided paralysis CT Head Noncon + CTA insignificant for flow problems/acute hemorrhage MRI = diffuse R parietal infarctions 06/15 AM No Throbolytics - outside 4.5hr window Most likely a subacute infarction manifesting AM 06/15 Neuro Recommendations: Stroke/Telemetry Floor Neuro Checks (Q4) Head of Bed 30 Degrees Plavix 300 given 06/14 DAPT 81 75 started 06/14 06/15 PT Recs: intense PT OT and ST services; patient is motivated to attempt to return to baseline 06/16 early AM aspiration concerns per nursing; CXR ordered w/ no evidence of aspiration. 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, put on soft pureed diet -Daily CBC CMP Mg Phos -ECHO done, pending read -Follow up Neurology inpt evaluation further recs -Rehab consulted, to evaluate pt -DAPT 81 75 PO q24h 06/14 -> -Soft Pureed diet -DVT PPX 40 Lovenox #Type 2 diabetes mellitus Takes metformin 850 mg daily at home A1c 06/15 AM 13% -ISS -Hypoglycemic protocol in place -Follow up daily labs -Soft pureed diet #HLD at home on Pravastatin 10mg q24h -Continue on Atorvastatin 40mg PO HS #Neuropathy -Resume home pregabalin 75mg q24h Hospital management: Disposition: Stroke management inpatient Fluids: none, per diet Diet: Soft pureed Lines: PIV DVT prophylaxis: Enoxaparin 40mg q24h CODE STATUS: full code Patient seen and discussed with attending physician Dr. Luba Torres and senior resident Dr. Lj Herrera MD PGY-1 Attending Provider Attestation/Addendum I, Luba Torres, , attest that I was physically present for the samayoa portions of the service and evaluated the patient with the resident and I reviewed and discussed the case with the resident and agree with the resident's findings and plans of care as documented above Patient seen and eval this a.m. Patient had an episode of aspiration of a grape yesterday, but states that he is doing well today. Diet has been changed to pur?ed diet. He continues to have left-sided hemiaplasia. He will need acute rehab upon discharge. We are pending echocardiogram read at this time and neurology recommendations. Will continue with aspirin and Plavix at this time along with atorvastatin for secondary prophylaxis of CVA.
[2025-06-16] MEDS: INSULIN LISPRO (AdmeLOG) 1 UNIT/0.01 ML UNIT SC (17:38)
--- NOTE | 2025-06-16 20:07 | ESPR_ITS ---
Documentation for date of: 06/16/25 Subjective Subjective Interval history: Patient reports continued left sided paralysis. On examination there is no movement of the left side entirely now. Patient was accepted to [place] acute rehab but family looking into possibly [place]. Exam Vital Signs Temp Pulse Resp BP Pulse Ox O2 Del Method 97.0 F 77 20 158/86 H 96 Room Air 06/17/25 04:00 06/17/25 04:00 06/17/25 04:00 06/17/25 04:00 06/17/25 00:00 06/17/25 00:00 Narrative Exam Physical Exam General: Awake and in no acute distress. Conversational and non-toxic appearing. HEENT: Normocephalic, atraumatic, mucous membranes moist. Heart: Regular rate and rhythm, normal S1 and S2, no murmurs. Lungs: Clear to auscultation with no wheezing or crackles. Abdomen: Soft, nondistended, nontender, positive bowel sounds. ?No guarding or rebound tenderness. Neuro Stroke Exam: -Alert and oriented x3. -CN II-XII intact. -Normal visual alejandra. -Normal fluent speech. -Obvious left-sided facial droop. -Strength 5/5 right arm, 5/5 right small stock facer strength. 0/5 left arm strength, 0/5 left small stock facer strength. -Strength 5/5 right lower extremity. 0/5 left lower extremity. -Intact sensation bilaterally. -Normal cnqwsr-gt-rngq, normal oqbj-dp-tcin testing. Extremities: No edema. Skin: No rash or ecchymoses. Objective Labs 06/17/25 04:43 06/17/25 04:43 Labs: Laboratory Results - last 24 hr 06/16/25 06/17/25 05:35 04:43 WBC 11.3 H 10.2 RBC 4.95 5.33 Hgb 14.6 15.4 Hct 41.0 44.7 MCV 83 84 MCH 29.5 28.9 MCHC 35.6 34.5 RDW Std Deviation 38.7 38.9 Plt Count 225 242 Neut % (Auto) 70 72 Lymph % (Auto) 21 18 [place] % (Auto) 8 9 Eos % (Auto) 0 1 Baso % (Auto) 0 0 Neut # (Auto) 7.9 H 7.4 Lymph # (Auto) 2.4 1.9 [place] # (Auto) 0.9 H 0.9 H Eos # (Auto) 0.1 0.1 Baso # (Auto) 0.0 0.0 Immature Gran # (Auto) 0.03 H 0.02 H Absolute Nucleated RBC 0.00 0.00 Immature Gran % 0 0 Nucleated RBC % 0 0 Sodium 141 Potassium 3.9 Chloride 104 Carbon Dioxide 27.2 Anion Gap 10 BUN 11 Creatinine 0.9 Estim Creat Clear Calc 73.1 eGFR > 60 BUN/Creatinine Ratio 12 Glucose 167 H D Calculated Osmolality 284 Calcium 8.8 Corrected Calcium 9.0 Phosphorus 3.1 Magnesium 1.6 Total Bilirubin 0.7 AST 20 ALT 17 Alkaline Phosphatase 73 Total Protein 6.0 Albumin 3.7 Globulin 2.3 Albumin/Globulin Ratio 1.6 Quality Measures Quality Measures none Assessment & Plan Assessment Current Active Medications: Generic Name Dose Route Start Last Admin Trade Name Freq PRN Reason Stop Dose Admin Acetaminophen 650 mg 06/14/25 17:20 Acetaminophen 325 Mg Tablet PO 07/14/25 17:19 Q6H PRN PAIN OR FEVER > 100.4 Aspirin 81 mg 06/15/25 09:00 06/16/25 08:05 Aspirin Ec 81 Mg Tabec PO 07/15/25 08:59 Not Given DAILY JAYE Atorvastatin Calcium 40 mg 06/14/25 21:00 06/16/25 20:33 Atorvastatin Calcium 20 Mg Tablet PO 07/14/25 20:59 40 mg HS JAYE Administration Clopidogrel Bisulfate 75 mg 06/15/25 09:00 06/16/25 08:05 Clopidogrel Bisulfate 75 Mg Tablet PO 07/15/25 08:59 Not Given DAILY JAYE Dextrose 25 ml 06/14/25 17:30 Dextrose 50%-Water Inj 50 Ml Syringe IV 07/14/25 17:29 Q15MIN PRN BG 50-70 responsive npo pt Dextrose 50 ml 06/14/25 17:30 Dextrose 50%-Water Inj 50 Ml Syringe IV 07/14/25 17:29 Q15MIN PRN BG <50 OR BG <70 & pt unresponsive Enoxaparin Sodium 40 mg 06/15/25 09:00 06/16/25 08:04 Enoxaparin Sod Inj 40 Mg/0.4 Ml Syringe SC 06/29/25 08:59 40 mg QDAY JAYE Administration Glucagon 1 mg 06/14/25 17:30 Glucagon Inj 1 Mg Vial IM Q15MIN PRN BG <70, and no IV access Lactated Ringer's 1,000 mls @ 75 mls/hr 06/14/25 17:30 06/17/25 05:38 Lactated Ringers IV 07/14/25 17:29 75 mls/hr .[id number] JAYE Administration Insulin Degludec 10 unit 06/15/25 09:00 06/16/25 08:05 Insulin Degludec 5 Unit/0.05 Ml (Per 5 Units) SC 07/15/25 08:59 Not Given QDAY JAYE Insulin Human Lispro 0 unit 06/16/25 00:00 06/17/25 05:43 Insulin Lispro (Admelog) 1 Unit/0.01 Ml Unit SC 07/16/25 00:00 3 unit Q6HR JAYE Administration Protocol Labetalol HCl 20 mg 06/16/25 20:11 06/16/25 20:33 Labetalol Inj 5 Mg/Ml Vial 4 Ml IVP 07/14/25 17:29 20 mg Q10MIN PRN Administration SBP >160 OR DBP >110 Ondansetron HCl 4 mg 06/14/25 17:20 06/15/25 10:24 Ondansetron Inj 2 Mg/Ml Inj 2 Ml IVP 07/14/25 17:19 4 mg Q6H PRN Administration NAUSEA OR VOMITING Protocol Pantoprazole Sodium 40 mg 06/16/25 09:00 06/16/25 08:05 Pantoprazole 40 Mg Tablet PO 07/16/25 08:59 Not Given QDAY JAYE Pregabalin 75 mg 06/15/25 09:00 06/16/25 08:05 Pregabalin 75 Mg Capsule PO 07/15/25 08:59 Not Given QDAY JAYE Plan 60-year-old Wolof-speaking male with a past medical history significant for type 2 diabetes mellitus, hypertension, hyperlipidemia, and peripheral neuropathy who presented on 06/14/2025 after a ground level fall at home, found to have an acute right parietal ischemic stroke, and neurology is consulted for further management. #Acute right parietal ischemic stroke #Left hemiplegia #Left facial droop #Dysarthria #Dysphagia Patient presented after ground level fall, initially with left sided weakness but on presentation NIHSS only 1-3. Had a second stroke alert while inpatient the second day in which NIHSS worsened to 10-13. CT head and CTA head/neck negative both times for hemorrhage or large vessel occlusion respectively. MRI/MRA brain 06/25/2025 showed multiple acute infarcts in the right parietal lobe. A1c is 13.2 indicating very poor control of diabetes TG 102, TC 177, LDL 112, HDL 45 -Patient will need dual antiplatelet therapy for 21 days followed by Plavix alone -Continue aspirin 81 mg qday -Continue Plavix 75 mg qday -Continue atorvastatin 40 mg qday -Aggressive control of BP, glucose, and lipids -Patient will need intense rehabilitation and acute rehab Rest of conditions to continue current management per primary team: #History of type 2 diabetes #History of hypertension #History of hyperlipidemia Patient was discussed with the Neurology attending, Dr. Christy. Thank you for allowing us to participate in the care of this patient. Alejandra Nelson, PGY-3 Attending Provider Attestation/Addendum HeI personally have seen and examined the patient at the bedside and I agreed with the resident's findings assessment and plan of care. Left hemiparesis involving face, arm and leg and hemiparesthesias consistent with acute ischemic infarction involving the right parietal area. Patient got accepted to [place] acute rehab and will be discharged today. Patient will continue with dual antiplatelet therapy along with statin, and aggressive vascular risk factor control. Will see him back in my office upon referral from primary in 2 weeks.
[2025-06-16] MEDS: ATORVASTATIN CALCIUM 20 MG TABLET 40 MG PO (20:33)
[2025-06-17] VITALS (8 sets, daily range): BP systolic 147–171; BP diastolic 72–89; PULSE 75–89; RESP 16–97; TEMP 36.1–36.9; O2SAT 95–97; BMI 24.2
[2025-06-17] MEDS: INSULIN LISPRO (AdmeLOG) 1 UNIT/0.01 ML UNIT SC ×3 (00:19→12:06)
[2025-06-17 05:27] LABS: Basophils # (Auto) 0.0 Thou/mm3 (0.0-0.2); Basophils % (Auto) 0 % (0-2.5); Eosinophils # (Auto) 0.1 Thou/mm3 (0.0-0.5); Eosinophils % (Auto) 1 % (0-10); Hematocrit 44.7 % (41.0-53.0); Hemoglobin 15.4 g/dL (13.5-16.0); Immature Granulocytes Auto 0.02 Thou/mm3 (0.00-0.00); Lymphocytes # (Auto) 1.9 Thou/mm3 (1.0-4.8); Lymphocytes % (Auto) 18 % (10-50); Mean Corpuscular HGB Conc 34.5 g/dl (31.0-37.0); Mean Corpuscular Hemoglobin 28.9 pg (25.0-35.0); Mean Corpuscular Volume 84 fL (80-100); Monocytes # (Auto) 0.9 Thou/mm3 (0.0-0.8); Monocytes % (Auto) 9 % (0-12); Neutrophils # (Auto) 7.4 Thou/mm3 (1.8-7.7); Neutrophils % (Auto) 72 % (37-80); Nucleated Red Blood Cell # 0.00 Thou/mm3 (0.00-0.00); Nucleated Red Blood Cell % 0 /100 WBC (0); Platelet Count 242 Thou/mm3 (140-440); RDW Standard Deviation 38.9 fL (35.1-43.9); Red Blood Count 5.33 Miln/mm3 (4.50-5.90); White Blood Count 10.2 Thou/mm3 (3.8-10.6)
[2025-06-17] MEDS: RINGERS LACTATED 1000 ML 1,000 ML 75 ML IV (05:38)
[2025-06-17 06:23] LABS: Alanine Aminotransferase 18 U/L (10-49); Albumin, Serum 4.3 gm/dL (3.4-4.8); Albumin/Globulin Ratio 1.7 (1.2-2.2); Alkaline Phosphatase 83 U/L (46-116); Anion Gap 15 (7-16); Aspartate Amino Transferase 19 U/L (0-34); BUN/Creatinine Ratio 11 Ratio (12-20); Bilirubin,Total 0.9 mg/dL (0.3-1.2); Blood Urea Nitrogen 10 mg/dL (9-23); Calcium 9.4 mg/dL (8.3-10.6); Calcium (Corrected) 9.4 mg/dL (8.5-10.1); Carbon Dioxide 24.9 mMol/L (20.0-31.0); Chloride 102 mMol/L (98-107); Creatinine (Component) 0.9 mg/dL (0.6-1.3); Estimated Creatinine Clearance 73.1 mL/min (>60); Globulin 2.6 gm/dL (2.3-3.5); Glucose 212 mg/dL (74-106); Magnesium 1.5 mg/dL (1.6-2.6); Osmolality,Calculated 288 (275-295); Phosphorous 3.5 mg/dL (2.4-5.1); Potassium 3.3 mMol/L (3.4-5.1); Sodium 142 mMol/L (136-145); Total Protein 6.9 gm/dL (5.7-8.2); eGFR > 60 See Note
[2025-06-17] MEDS: INSULIN DEGLUDEC 5 UNIT/0.05 ML (PER 5 UNITS) 10 UNIT SC ×2 (08:18→12:51)
[2025-06-17] MEDS: ENOXAPARIN SOD INJ 40 MG/0.4 ML SYRINGE SC (08:19)
[2025-06-17] MEDS: CLOPIDOGREL BISULFATE 75 MG TABLET PO (08:19)
[2025-06-17] MEDS: ASPIRIN EC 81 MG TABEC PO (08:19)
[2025-06-17] MEDS: PREGABALIN 75 MG CAPSULE PO (08:19)
[2025-06-17] MEDS: PANTOPRAZOLE 40 MG TABLET PO (08:19)
[2025-06-17] MEDS: Magnesium Sulfate 4 GM Ivpb 4 GM/50 ML BAG IV (09:25)
[2025-06-17] MEDS: SENNA/DOCUSATE SOD 1 TAB TABLET PO (09:50)
--- NOTE | 2025-06-17 11:24 | PC.SS ---
follow up note: SS provided updated clinicals to [facility] acute rehab. Pending bed availability. Patient has d/c orders for today. SS will follow up with response for d/c.
--- NOTE | 2025-06-17 12:20 | PC.SS ---
SS spoke to [facility] acute rehab who states they can accept patient today but they need med rec and dc summary before they release the bed. They prefer last picker at 4p.m.
--- NOTE | 2025-06-17 12:29 | ESDS_ITS ---
<Statement entered by Lj Fermin MD - 06/17/25 13:17> ----- Note reviewed and agree with care plan as documented. Please refer to the note below for further details. Plan discussed with attending physician Dr. Obed Fermin MD PGY-2 Internal Medicine Planned Discharge Date 06/17/25 DS: Providers Provider Date of admission: 06/14/25 17:20 Primary care physician: Physician No Primary/Family Admitting Provider: Miguel Clay MD Attending Provider on Admission: Luba Torres DO Consults: 06/14/25 14:30 Consult to Neurology / Tele-Neurology Routine Comment: Consulting Provider: [facility] 06/14/25 17:23 Consult to Neurology / Tele-Neurology Routine Comment: Consulting Provider: Jose De Jesus Christy 06/14/25 17:24 Referral Physical Therapy Routine Comment: Physician Instructions: Referral Speech Therapy Routine Comment: 06/16/25 08:00 Referral Speech Therapy Urgent Comment: please re-eval Attending Provider on DC: Blake Herrera MD Discharging Provider: Blake Herrera MD DS: Diagnosis Problem List Completed Was Problem List Reviewed/Reconciled?: Yes Hospital Course Hospital Course Hospital course: Mr. Anil Davis is a 60 year old male w/ a PMH significant for diabetes, hypertension, hyperlipidemia and neuropathy came to [facility] ED for reports of left leg weakness. In the morning of 06/14/2025 around 2am, patient reports that he went to use the restroom and when getting up felt like his leg was weak and giving in. Subsequently, Mr. Ma went back to sleep, only to wake up later in the day to a headache, to which he went to the ED. Upon arrival to ED, CT Head w/out contrast, CTA and laboratory work were noncontributory and negative for any acute hemorrhagic nor ischemic infarction. A1c significant for 13%. Hypertension was noted on arrival. Physical exam on initial encounter, however, was notable for +3 strength in LUE, LLE, and +4 strength on both right upper extremities. Pt was not dysarthric and cranial nerve exam + refelxes were within normal limits. Mr. Ma had difficulty ambulating with his left leg, consistent with the report of weakness earlier in the day. He was given a loading dose of Plavix 300mg and started on DAPT with Aspirin 81 and Plavis 75. Initial NIH Stroke Score was 2. Permissive hypertension parameters 220/120 were initiated. Pt started on home meds, HLD meds switched to atorvastatin 80. The morning after admission, a stroke code was called after nursing staff noted Mr. Davis to have L sided hemiplegia. Medical team responded and he was taken to get scans: CT head noncontrast, CTA Head, MRI/MRA. CT and CTA were negatives for any significant findings, MRA significant for diffuse right parietal ischemia. Pt taken back to telemetry floor for further management following his stroke. Subsequent care included Speech Therapy swallow evaluation for progression of diet and further neurology evaluation. Neurology inpatient evaluation kept pt on DAPT: Aspirin 81 q24h + Plavix 75 q24h for 21 days, then Plavix 75mg q24h. Atorvastatin 40mg q24h to continue. Family(son, ) contacted to evaluate disposition planning, including rehabilitation placement, as recommended by neurology and physical therapy. On Day 4 of care, Mr. Ma was safely discharged to [facility] for further management and intensive rehabil itation efforts. Discharge Diagnoses #CVA #Subacute Stroke #LLE LUE Paralysis #Facial Droop #Type 2 diabetes mellitus #HLD #Neuropathy Discharge instructions Por favor, tome parth medicamentos seg?n lo recetado; es importante que tome la aspirina y el Eliquis. Consulte con monteiro m?dico de cabecera dentro de las dos semanas posteriores al tawnya de [facility]. Si presenta alg?n problema kinga, arben dolor de moreno, debilidad creciente u otros s?ntomas, acuda al servicio de urgencias. Despu?s del tawnya de [facility], acuda a la consulta externa de Neurolog?a. Siga atentamente las instrucciones de [facility]. Status at Discharge Cognitive/behavioral status at discharge: status/post stroke, L hemiplegia Time Spent with Patient Time attestation: Total time spent providing and/or coordinating discharge services: Time spent: Greater than 30 minutes Quality: Stroke Pt Provided Written Stroke Discharge Instructions: Yes Exam Vital Signs Temp Pulse Resp BP Pulse Ox O2 Del Method 98.2 F 79 17 147/72 H 95 Room Air 06/17/25 08:18 06/17/25 08:18 06/17/25 08:18 06/17/25 08:18 06/17/25 08:18 06/17/25 08:18 Narrative Exam General: alert and oriented to self/place/year, HEENT: NC/AT, mucous membranes moist, bilateral sclera anicteric Cardiovascular: regular rate and rhythm, S1/S2 present, no murmurs appreciated Pulmonary: clear to auscultation bilaterally, no rales/rhonchi/wheezes Abdominal: soft, nontender, present bowel sounds Musculoskeletal: no peripheral edema Neurological: L sided hemiparesis in both extremities, hemianesthesia on LUE LLE Skin: Warm, well-perfused Discharge Plan Plan Patient Disposition: Xfer [employer] Acute Patient condition on transfer: Stable Care Plan Goals: Please take your medications as prescribed, it is important you take your aspirin and eliquis Please see your primary care provider within two weeks after discharge from [facility] For any acute concerns regarding headache, increasing weakness or headache or other symptoms please return to the emergency department Please follow up with Neurology outpatient after discharge from [facility] Please follow [facility] instructions carefully Prescriptions/Referrals Prescriptions/Med Rec: New aspirin 81 mg Tablet,Delayed Release (Dr/Ec) 81 mg PO DAILY 18 Days Qty: 18 0RF atorvastatin [Lipitor] 40 mg tablet 40 mg PO HS 30 Days Qty: 30 0RF clopidogrel 75 mg Tablet 75 mg PO DAILY 30 Days Qty: 30 0RF insulin lispro 100 unit/mL Solution 1 sliding scale dose subcut AC Qty: 10 0RF insulin degludec 100 unit/mL Solution 20 unit subcut QDAY 30 Days Qty: 6 0RF insulin lispro 100 unit/mL Solution 5 unit subcut TIDWM Qty: 10 0RF Continued metformin 850 mg PO DAILY pregabalin [Lyrica] 75 mg capsule 75 mg PO QDAY clonazepam [Klonopin] 2 mg tablet 2 mg PO QDAY Held naproxen sodium [Flanax (naproxen)] 220 mg tablet 220 mg PO BID PRN (Reason: pain) Hold Instructions: Hold until you follow-up with your PCP Discontinued pravastatin 10 mg tablet 10 mg PO QDAY Referrals: No Primary/Family,Physician [Primary Care Provider] Patient/Caregiver Discharge Instructions Education Materials: Stroke: Taking Medicines, Stroke: Self-Care, Stroke: Tips for Swallowing, Stroke Prevent Another Caregiver Print Language: Burkinan Stand Alone Forms: [facility] Award Info., Patient Portal Info Letter Discharge Order Discharge Orders: Discharge (Routine); Ordered 06/17/25 Ordered By: Lj Fermin Quality Discharge Quality Measures stroke Statin ordered >75 y/o:moderate or high intensity dose on DC: no Statin ordered <75 y/o: high intensity dose on DC: yes Statin not ordered due to:: not indicated Anticoagulation ordered for A-fib or flutter (current or hx): ordered Antithrombotic ordered on DC: not indicated (describe) (out of window >4.5hr) and none MD Attestestation MD Attestation I have examined the patient, reviewed labs and imaging findings, discussed the case with the resident(s), and reviewed entered orders. I agree with the plan of care as outlined in this note. Time Spent; [address] Obed MD
--- NOTE | 2025-06-17 14:48 | ESPR_ITS ---
Documentation for date of: 06/17/25 Subjective Subjective Interval history: Patient seen at bedside, still has flaccid paralysis of left side. Patient was approved for rehab at [facility] and will be discharged today. Follow up with Neurology in 2 weeks. Exam Vital Signs Temp Pulse Resp BP Pulse Ox O2 Del Method 97.5 F 75 16 154/88 H 96 Room Air 06/17/25 12:15 06/17/25 12:15 06/17/25 12:15 06/17/25 12:15 06/17/25 12:15 06/17/25 12:15 Narrative Exam Physical Exam General: Awake and in no acute distress. Conversational and non-toxic appearing. HEENT: Normocephalic, atraumatic, mucous membranes moist. Heart: Regular rate and rhythm, normal S1 and S2, no murmurs. Lungs: Clear to auscultation with no wheezing or crackles. Abdomen: Soft, nondistended, nontender, positive bowel sounds. ?No guarding or rebound tenderness. Neuro Stroke Exam: -Alert and oriented x3. -CN II-XII intact. -Normal visual alejandra. -Normal fluent speech. -Obvious left-sided facial droop. 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 0/5 left arm strength, 0/5 left electric truck crane operator strength. -Strength 5/5 right lower extremity. 0/5 left lower extremity. -Intact sensation bilaterally. -Normal rxbtsm-fp-lnzg, normal vhlz-du-yeyw testing. Extremities: No edema. Skin: No rash or ecchymoses. Objective Labs 06/17/25 04:43 06/17/25 04:43 Labs: Laboratory Results - last 24 hr 06/17/25 04:43 WBC 10.2 RBC 5.33 Hgb 15.4 Hct 44.7 MCV 84 MCH 28.9 MCHC 34.5 RDW Std Deviation 38.9 Plt Count 242 Neut % (Auto) 72 Lymph % (Auto) 18 [place] % (Auto) 9 Eos % (Auto) 1 Baso % (Auto) 0 Neut # (Auto) 7.4 Lymph # (Auto) 1.9 [place] # (Auto) 0.9 H Eos # (Auto) 0.1 Baso # (Auto) 0.0 Immature Gran # (Auto) 0.02 H Absolute Nucleated RBC 0.00 Immature Gran % 0 Nucleated RBC % 0 Sodium 142 Potassium 3.3 L D Chloride 102 Carbon Dioxide 24.9 Anion Gap 15 BUN 10 Creatinine 0.9 Estim Creat Clear Calc 73.1 eGFR > 60 BUN/Creatinine Ratio 11 L Glucose 212 H Calculated Osmolality 288 Calcium 9.4 Corrected Calcium 9.4 Phosphorus 3.5 Magnesium 1.5 L Total Bilirubin 0.9 AST 19 ALT 18 Alkaline Phosphatase 83 Total Protein 6.9 Albumin 4.3 D Globulin 2.6 Albumin/Globulin Ratio 1.7 Quality Measures Quality Measures stroke Suspected type of Stroke: Acute Ischemic Last known well (date): 06/15/25 Last known well (time): 08:00 Tenecteplase given: Reason(s) Tenecteplase not given: Outside the time window not given Rehab services: PT evaluation ordered and Speech Language Pathology eval ordered VTE Prophylaxis: pharmaceutical Antithrombotic by day 2:: not indicated (describe) Statin ordered: <75 y/o high intensity dose Anticoagulation ordered for A-fib or flutter (current or hx): contraindicated and none Assessment & Plan Assessment Current Active Medications: Generic Name Dose Route Start Last Admin Trade Name Freq PRN Reason Stop Dose Admin Acetaminophen 650 mg 06/14/25 17:20 Acetaminophen 325 Mg Tablet PO 07/14/25 17:19 Q6H PRN PAIN OR FEVER > 100.4 Aspirin 81 mg 06/15/25 09:00 06/17/25 08:19 Aspirin Ec 81 Mg Tabec PO 07/15/25 08:59 81 mg DAILY JAYE Administration Atorvastatin Calcium 40 mg 06/14/25 21:00 06/16/25 20:33 Atorvastatin Calcium 20 Mg Tablet PO 07/14/25 20:59 40 mg HS JAYE Administration Clopidogrel Bisulfate 75 mg 06/15/25 09:00 06/17/25 08:19 Clopidogrel Bisulfate 75 Mg Tablet PO 07/15/25 08:59 75 mg DAILY JAYE Administration Dextrose 25 ml 06/14/25 17:30 Dextrose 50%-Water Inj 50 Ml Syringe IV 07/14/25 17:29 Q15MIN PRN BG 50-70 responsive npo pt Dextrose 50 ml 06/14/25 17:30 Dextrose 50%-Water Inj 50 Ml Syringe IV 07/14/25 17:29 Q15MIN PRN BG <50 OR BG <70 & pt unresponsive Enoxaparin Sodium 40 mg 06/15/25 09:00 06/17/25 08:19 Enoxaparin Sod Inj 40 Mg/0.4 Ml Syringe SC 06/29/25 08:59 40 mg QDAY JAYE Administration Glucagon 1 mg 06/14/25 17:30 Glucagon Inj 1 Mg Vial IM Q15MIN PRN BG <70, and no IV access Lactated Ringer's 1,000 mls @ 75 mls/hr 06/14/25 17:30 06/17/25 05:38 Lactated Ringers IV 07/14/25 17:29 75 mls/hr .[id number] JAYE Administration Insulin Degludec 20 unit 06/18/25 09:00 Insulin Degludec 5 Unit/0.05 Ml (Per 5 Units) SC 07/18/25 08:59 QDAY JAYE Insulin Human Lispro 0 unit 06/17/25 11:30 06/17/25 12:06 Insulin Lispro (Admelog) 1 Unit/0.01 Ml Unit SC 07/17/25 11:29 5 unit AC JAYE Administration Protocol Insulin Human Lispro 5 unit 06/17/25 17:30 Insulin Lispro (Admelog) 1 Unit/0.01 Ml Unit SC 07/17/25 17:29 TIDWM JAYE Labetalol HCl 20 mg 06/16/25 20:11 06/17/25 08:19 Labetalol Inj 5 Mg/Ml Vial 4 Ml IVP 07/14/25 17:29 20 mg Q10MIN PRN Administration SBP >160 OR DBP >110 Ondansetron HCl 4 mg 06/14/25 17:20 06/15/25 10:24 Ondansetron Inj 2 Mg/Ml Inj 2 Ml IVP 07/14/25 17:19 4 mg Q6H PRN Administration NAUSEA OR VOMITING Protocol Pantoprazole Sodium 40 mg 06/16/25 09:00 06/17/25 08:19 Pantoprazole 40 Mg Tablet PO 07/16/25 08:59 40 mg QDAY JAYE Administration Polyethylene Glycol 17 gm 06/18/25 09:00 Polyethylene Glycol 17 Gm Packet PO 07/18/25 08:59 QDAY JAYE Pregabalin 75 mg 06/15/25 09:00 06/17/25 08:19 Pregabalin 75 Mg Capsule PO 07/15/25 08:59 75 mg QDAY JAYE Administration Sennosides 1 tab 06/17/25 09:38 06/17/25 09:50 Senna/Docusate Sod 1 Tab Tablet PO 07/17/25 09:37 1 tab QDAY PRN Administration CONSTIPATION Protocol Plan 60-year-old Italian-speaking male with a past medical history significant for type 2 diabetes mellitus, hypertension, hyperlipidemia, and peripheral neuropathy who presented on 06/14/2025 after a ground level fall at home, found to have an acute right parietal ischemic stroke, and neurology is consulted for further management. #Acute right parietal ischemic stroke #Left hemiplegia #Left facial droop #Dysarthria #Dysphagia Patient presented after ground level fall, initially with left sided weakness but on presentation NIHSS only 1-3. Had a second stroke alert while inpatient the second day in which NIHSS worsened to 10-13. CT head and CTA head/neck negative both times for hemorrhage or large vessel occlusion respectively. MRI/MRA brain 06/25/2025 showed multiple acute infarcts in the right parietal lobe. A1c is 13.2 indicating very poor control of diabetes TG 102, TC 177, LDL 112, HDL 45 -Patient will need dual antiplatelet therapy for 21 days followed by Plavix alone -Continue aspirin 81 mg qday -Continue Plavix 75 mg qday -Continue atorvastatin 40 mg qday -Aggressive control of BP, glucose, and lipids -Patient will need intense rehabilitation and acute rehab Rest of conditions to continue current management per primary team: #History of type 2 diabetes #History of hypertension #History of hyperlipidemia Patient was discussed with the Neurology attending, Dr. Christy. Thank you for allowing us to participate in the care of this patient. Alejandra Nelson, PGY-3 Attending Provider Attestation/Addendum DericI personally have seen and examined the patient at the bedside and I agreed with the resident's findings assessment and plan of care. Left hemiparesis involving face, arm and leg and hemiparesthesias consistent with acute ischemic infarction involving the right parietal area. Patient got accepted to [place] acute rehab and will be discharged today. Patient will continue with dual antiplatelet therapy along with statin, and aggressive vascular risk factor control. Will see him back in my office upon referral from primary in 2 weeks.
== END 2025-06-17 17:22 | DRG 45 ==
LOC: SERX 14:26 → SERHOLD 17:34 → S3NX 20:04
PROVIDERS: Nurse Practitioner Family; Admitting Provider Student in an Organized Health Care Education/Training Program; Visit Provider Internal Medicine
DX: I63.89 Other cerebral infarction (principal); R29.810 Facial weakness; E78.5 Hyperlipidemia, unspecified; E11.40 Type 2 diabetes mellitus with diabetic neuropathy, unspecified; I10 Essential (primary) hypertension; N20.0 Calculus of kidney; W06.XXXA Fall from bed, initial encounter; I16.0 Hypertensive urgency; E11.65 Type 2 diabetes mellitus with hyperglycemia; R13.10 Dysphagia, unspecified; R29.701 NIHSS score 1; G81.04 Flaccid hemiplegia affecting left nondominant side; Z79.02 Long term (current) use of antithrombotics/antiplatelets; Z79.82 Long term (current) use of aspirin; Z79.84 Long term (current) use of oral hypoglycemic drugs
CPT/HCPCS: 36415; 70450; 70496; 70498; 70544; 70551; 71045; 74176; 80053; 80061; 80307; 80320; 81001; 83036; 83690; 83735; 83880; 84100; 84439; 84443; 84484; 85025; 85610; 85730; 92526; 92610; 93005; 93225; 93306; 96372; 96374; 97162; 99285; A4649; J0360; J1650; J1815; J1885; J1920; J2060; J2270; J2405; J3475; J7120; Q9967; A9270; G0480